=== PATIENT | female | born 1975 | race Caucasian/White ===

== ENCOUNTER 2016-12-31 16:16 | Inpatient (IN) | payer MEDICAID, OTHER ==
[~2016-12-31] VITALS: Ht 162.6 cm; Wt 67.7 kg
[2016-12-31] MEDS ORDERED: ONDANSETRON 4 MG INJ IV STA (16:48)
[2016-12-31] MEDS ORDERED: morphine 4 MG/ML VIAL IV STA (16:48)
--- NOTE | 2016-12-31 16:53 | ERD ---
ER Documentation Chief Complaint Date/Time DATE: 12/31/16 TIME: 16:51 Chief Complaint abd pain, onset 1 day, nausea, no vomiting HPI This is a 38-year-old female who presents the emergency department today complaining of abdominal pain that started yesterday morning. States that she has some dysuria. States that she has some nausea but no vomiting. She last ate 1 hour prior to arrival. states she took Tylenol last night.Denies any fevers or chills. ROS All systems reviewed and are negative except as per history of present illness. Allergies Allergies: Coded Allergies: No Known Allergy (Unverified , 12/31/16) PMhx/Soc Medical and Surgical Hx: pt denies Medical Hx History of Surgery: Yes () Anesthesia Reaction: No Hx Neurological Disorder: No Hx Respiratory Disorders: No Hx Cardiac Disorders: No Hx Psychiatric Problems: No Hx Miscellaneous Medical Probl: No Hx Alcohol Use: No Hx Substance Use: No Hx Tobacco Use: No Smoking Status: Never smoker Physical Exam Vitals Vital Signs Date Time Temp Pulse Resp B/P Pulse Ox O2 Delivery O2 Flow Rate FiO2 12/31/16 16:20 99.5 86 17 98/74 98 Physical Exam Const: NAD Head: Atraumatic Eyes: Normal Conjunctiva ENT: Normal External Ears, Nose and Mouth. Neck: Full range of motion..~ No meningismus. Resp: Clear to auscultation bilaterally Cardio: Regular rate and rhythm, no murmurs Abd: Soft, diffuse abdominal pain non distended. Normal bowel sounds Skin: No petechiae or rashes Back: No midline or flank tenderness Ext: No cyanosis, or edema Neur: Awake and alert Psych: Normal Mood and Affect Result Diagram: 12/31/16 1735 12/31/16 1735 Results 24 hrs Laboratory Tests Test 12/31/16 17:35 White Blood Count 11.510^3/ul Red Blood Count 4.8210^6/ul Hemoglobin 14.4g/dl Hematocrit 43.1% Mean Corpuscular Volume 89.4fl Mean Corpuscular Hemoglobin 29.9pg Mean Corpuscular Hemoglobin Concent 33.4g/dl Red Cell Distribution Width 14.0% Platelet Count 08082^3/UL Mean Platelet Volume 10.5fl Neutrophils % 62.8% Lymphocytes % 30.2% Monocytes % 5.9% Eosinophils % 0.6% Basophils % 0.2% Nucleated Red Blood Cells % 0.0/100WBC Neutrophils # 7.210^3/ul Lymphocytes # 3.510^3/ul Monocytes # 0.710^3/ul Eosinophils # 0.110^3/ul Basophils # 0.010^3/ul Nucleated Red Blood Cells # 0.010^3/ul Urine Color YELLOW Urine Clarity CLEAR Urine pH 9.0 Urine Specific [place] 1.008 Urine Ketones NEGATIVEmg/dL Urine Nitrite NEGATIVEmg/dL Urine Bilirubin NEGATIVEmg/dL Urine Urobilinogen NEGATIVEmg/dL Urine Leukocyte Esterase NEGATIVELeu/ul Urine Hemoglobin NEGATIVEmg/dL Urine Glucose NEGATIVEmg/dL Urine Total Protein NEGATIVEmg/dl Sodium Level 140mmol/L Potassium Level 3.5mmol/L Chloride Level 97mmol/L Carbon Dioxide Level 35mmol/L Anion Gap 12 Blood Urea Nitrogen 11mg/dl Creatinine 0.67mg/dl Glucose Level 84mg/dl Calcium Level 9.4mg/dl Total Bilirubin 0.7mg/dl Direct Bilirubin 0.00mg/dl Indirect Bilirubin 0.7mg/dl Aspartate Amino Transf (AST/SGOT) 18IU/L Alanine Aminotransferase (ALT/SGPT) 32IU/L Alkaline Phosphatase 84IU/L Total Protein 7.4g/dl Albumin 4.2g/dl Globulin 3.20g/dl Albumin/Globulin Ratio 1.31 Lipase 27U/L Current Medications Medications (Trade) Dose Ordered Sig/Yuriy Route PRN Reason Start Time Stop Time Status Last Admin Dose Admin Morphine Sulfate (morphine) 4 mg ONCE STAT IV 12/31/16 16:48 12/31/16 16:50 DC 12/31/16 17:42 Ondansetron HCl 4 mg 4 mg ONCE STAT IV 12/31/16 16:48 12/31/16 16:50 DC 12/31/16 17:43 Sodium Chloride 1,000 ml @ 1,000 mls/hr Q1H ONCE IV 12/31/16 19:00 12/31/16 19:59 Ampicillin Sodium/ Sulbactam Sodium (Unasyn 3gm/NS (Pmx)) 100 ml @ 100 mls/hr ONCE ONCE IVPB 12/31/16 19:30 12/31/16 20:29 DIAGNOSTIC IMAGING REPORT Patient: LINA CARNEY : 1975 Age: 41 Sex: F [id number] DOS: 12/31/16 1648 Ordering MD: RICCO PARKINSON PA-C Location: [facility] Room/Bed: PROCEDURE: CT Abdomen and Pelvis without contrast. CLINICAL INDICATION: Pain. TECHNIQUE: CT scan of the abdomen and pelvis was performed on a multidetector slice CT scanner. No intravenous contrast material was utilized. Sagittal and coronal reformatted images were obtained from the axial source images. Images were reviewed on a high-resolution PACS workstation. Exam CTDlvol = 10.6 mGy and DLP = 416 Gy-cm. One of the following 3 dose reduction techniques were used : Automated exposure control; adjustment of the mA and/or kV according to patient size; or use of iterative reconstruction technique. COMPARISON: None. FINDINGS: There is no obstruction or ileus. The appendix is indistinct measuring up to 13 mm. There is extensive surrounding infiltration extending fromthe right lower quadrant to the pelvis. There is small amount of free fluid.. There are multiple sub centimeter mesenteric lymph nodes. There is no evidence for diverticulitis. The liver is overall normal in size. No intrahepatic lesions are identified. The gallbladder is normal in appearance. There is no definite biliary ductal dilation. Pancreas is normal in appearance. The spleen is unremarkable. There are no adrenal masses. The aorta is normal caliber. There are multiple complex fat containing masses in the upper pole of the left kidney, largest up to 15 mm in diameter. Kidneys are otherwise normal in appearance without hydronephrosis or calculus. There is no perinephric collection. Ureters are of normal caliber and without evidence for an obstructing calculus The urinary bladder is normal in appearance. The uterus is grossly unremarkable. The ovaries are not distinctly visualized. Limited evaluation of the lung bases demonstrates bibasilar atelectasis. There are degenerative changes at the L5-S1 disc space with disk space narrowing and posterior osteophyte.. IMPRESSION: 1. Enlarged indistinct appendix extensive surrounding infiltration extending from the right lower quadrant to the pelvis.. Appearance is consistent with acute appendicitis. No free intraperitoneal gas to suggest a ruptured appendix.. Small amount of free fluid. Small reactive lymph nodes. 2. No obstructive uropathy. Multiple fat containing lesions in the upper pole of the left kidney, most commonly angiomyolipomas. Follow-up studies are recommended for confirmation. Findings reported to nurse Janeen on 12/31/2016 6:45:25 PM. RPTAT: HMVK .Fortino Razo MD, MD Date Time Electronically viewed and signed by .Fortino Razo MD, MD on 12/31/2016 18:48 .K/ CC: RICCO PARKINSON PA-C Procedures/MDM This 41-year-old female who presents to the emergency department today complaining of abdominal pain that started yesterday morning. On physical exam patient has diffuse abdominal pain and therefore did obtain a laboratory workup as well as imaging. This is the patient's first visit to the emergency department. Laboratory workup shows a mildly elevated white blood cell count. She is not anemic. Platelets are within normal limits. Electrolytes are within normal limits. Bicarb is slightly elevated. Glucose is within normal limits. Liver enzymes are within normal limits. Lipase is within normal limits UA is negative for infection Urine test is negative CT abdomen pelvis noncontrast enlarged indistinct appendix extensive surrounding infiltration extending from the right lower quadrant to the pelvis. Appearance consistent with acute appendicitis. There is no free air to suggest a ruptured appendix. There is a small amount of free fluid. There is no obstructive uropathy. Is at this time is consistent with acute appendicitis. I have explained the results of the patient and her daughter. Patient has agreed to stay in the hospital. I discussed the patient with the attending physician Dr. Randle agreed to admit the patient. Any further orders placed will be completed by Dr. Randle or the meeting physician or the surgeon. Patient was given morphine, Zofran, IV fluids here in the emergency department he continued to complain of pain was therefore given Dilaudid. She was also given IV antibiotics. Departure Diagnosis: Primary Impression: Appendicitis Appendicitis type: acute appendicitis Acute appendicitis type: unspecified acute appendicitis type Qualified Code: K35.80 - Acute appendicitis, unspecified acute appendicitis type Condition: Fair RICCO PARKINSON PA-C Dec 31, 2016 16:53
[2016-12-31 18:03] LABS: ADD UMIC NO; UR ASCORBIC ACID NEGATIVE (NEGATIVE); UR BILIRUBIN (Dip) NEGATIVE (NEGATIVE); UR BLOOD (Dip) NEGATIVE (NEGATIVE); UR CLARITY CLEAR (CLEAR); UR COLOR YELLOW (YELLOW); UR GLUCOSE (Dip) NEGATIVE (NEGATIVE); UR KETONES (Dip) NEGATIVE (NEGATIVE); UR LEUKOCYTE ESTERASE (Dip) NEGATIVE Leu/ul (NEGATIVE); UR NITRITE (Dip) NEGATIVE (NEGATIVE); UR SPECIFIC GRAVITY (Dip) 1.008 (1.003-1.030); UR TOTAL PROTEIN (Dip) NEGATIVE (NEGATIVE); UR UROBILINOGEN (Dip) NEGATIVE (NEGATIVE)
[2016-12-31 18:04] LABS: BASOPHILS % 0.2 % (0.0-2.0); EOSINOPHILS # 0.1 10^3/ul (0.0-0.5); EOSINOPHILS % 0.6 % (0.0-7.0); HEMATOCRIT 43.1 % (37.0-47.0); HEMOGLOBIN 14.4 g/dl (12.0-16.0); LYMPHOCYTES # 3.5 10^3/ul (0.8-2.9); LYMPHOCYTES % 30.2 % (15.0-51.0); MEAN CORPUSCULAR HEMOGLOBIN 29.9 pg (29.0-33.0); MEAN CORPUSCULAR HGB CONC 33.4 g/dl (32.0-37.0); MEAN CORPUSCULAR VOLUME 89.4 fl (82.0-101.0); MEAN PLATELET VOLUME 10.5 fl (7.4-10.4); MONOCYTE # 0.7 10^3/ul (0.3-0.9); MONOCYTES % 5.9 % (0.0-11.0); NEUTROPHIL # 7.2 10^3/ul (1.6-7.5); NEUTROPHILS % 62.8 % (39.0-77.0); PLATELET COUNT 198 10^3/UL (140-415); RED BLOOD COUNT 4.82 10^6/ul (4.20-5.40); WHITE BLOOD COUNT 11.5 10^3/ul (4.8-10.8)
[2016-12-31 18:22] LABS: ALBUMIN 4.2 g/dl (3.3-4.9); ALBUMIN/GLOBULIN RATIO 1.31; BILIRUBIN,INDIRECT 0.7 mg/dl (0-1.1); BILIRUBIN,TOTAL 0.7 mg/dl (0.2-1.3); CALCIUM 9.4 mg/dl (8.4-10.2); CREATININE 0.67 mg/dl (0.44-1.00); POTASSIUM 3.5 mmol/L (3.5-5.1); TOTAL PROTEIN 7.4 g/dl (6.1-8.1)
--- NOTE | 2016-12-31 18:49 | RADRPT ---
PROCEDURE: CT Abdomen and Pelvis without contrast. CLINICAL INDICATION: Pain. TECHNIQUE: CT scan of the abdomen and pelvis was performed on a multidetector slice CT scanner. No intravenous contrast material was utilized. Sagittal and coronal reformatted images were obtained fr om the axial source images. Images were reviewed on a high-resolution PACS workstation. Exam CTDlvol = 10.6 mGy and DLP = 416 Gy-cm. One of the following 3 dose reduction techniques were used: Automat ed exposure control; adjustment of the mA and/or kV according to patient size; or use of iterative r econstruction technique. COMPARISON: None. FINDINGS: There is no obstruction or ileus. The appendix is indistinct measuring up to 13 mm. There is extens brielle surrounding infiltration extending fromthe right lower quadrant to the pelvis. There is small am ount of free fluid.. There are multiple sub centimeter mesenteric lymph nodes. There is no evidence for diverticulitis. The liver is overall normal in size. No intrahepatic lesions are identified. The gallbladder is norm al in appearance. There is no definite biliary ductal dilation. Pancreas is normal in appearance. Th e spleen is unremarkable. There are no adrenal masses. The aorta is normal caliber. There are multiple complex fat containing masses in the upper pole of the left kidney, largest up to 15 mm in diameter. Kidneys are otherwise normal in appearance without hydronephrosis or calculus. T here is no perinephric collection. Ureters are of normal caliber and without evidence for an obstruc ting calculus The urinary bladder is normal in appearance. The uterus is grossly unremarkable. The ovaries are not distinctly visualized. Limited evaluation of the lung bases demonstrates bibasilar atelectasis. There are degenerative changes at the L5-S1 disc space with disk space narrowing and posterior osteo phyte.. IMPRESSION: 1. Enlarged indistinct appendix extensive surrounding infiltration extending from the right lower qu adrant to the pelvis.. Appearance is consistent with acute appendicitis. No free intraperitoneal gas to suggest a ruptured appendix.. Small amount of free fluid. Small reactive lymph nodes. 2. No obstructive uropathy. Multiple fat containing lesions in the upper pole of the left kidney, m ost commonly angiomyolipomas. Follow-up studies are recommended for confirmation. Findings reported to nurse Vernon on 12/31/2016 6:45:25 PM. RPTAT: HMVK .Fortino Razo MD, MD Date Time Electronically viewed and signed by .Fortino Razo MD, MD on 12/31/2016 18:48 .K/
[2016-12-31] MEDS ORDERED: SOD CHLORIDE 0.9% 1,000 ML IV ONE (19:00)
[2016-12-31] MEDS ORDERED: HYDROmorphONE 1 MG/ML SYG IV STA (19:05)
[2016-12-31] MEDS ORDERED: ONDANSETRON 4 MG INJ IV PRN ×2 (19:30→21:30)
[2016-12-31] MEDS ORDERED: AMPICILLIN/SULB 3 GM/NS (PMX) 100 ML IVPB ONE (19:30)
[2016-12-31] MEDS ORDERED: ACETAMINOPHEN 325 MG TAB PO PRN ×2 (19:30→21:30)
[2016-12-31 20:35] VITALS: TEMP 99.8
[2016-12-31] MEDS ORDERED: BISACODYL (EC) 5 MG TAB PO PRN (21:30)
[2016-12-31] MEDS ORDERED: NACL 0.9% 3 ML SYG IV SCH (21:30)
[2016-12-31] MEDS ORDERED: DOCUSATE SODIUM 100 MG CAP PO PRN (21:30)
[2016-12-31 21:31] VITALS: BP 111/58; RESP 20; Ht 162.6 cm; Wt 67.7 kg
[2016-12-31] MEDS: morphine 2 MG INJ IV PRN (22:18)
[2016-12-31] MEDS: SOD CHLORIDE 0.9% 1,000 ML IV SCH (22:21)
[2016-12-31] MEDS ORDERED: ACET500C5 PO (22:58)
[2017-01-01] VITALS (17 sets, daily range): BP systolic 91–116; BP diastolic 50–67; PULSE 56–76; RESP 15–25
[2017-01-01] MEDS ORDERED: PIPER-TAZO 3.375 GM IV (PMX) 100 ML IVPB SCH
[2017-01-01] MEDS ORDERED: DIPHENHYDRAMINE 50 MG INJ IV ONE (02:00)
[2017-01-01] MEDS: morphine 2 MG INJ IV PRN ×5 (02:24→21:00)
[2017-01-01 03:44] LABS: BASOPHILS % 0.3 % (0.0-2.0); EOSINOPHILS # 0.1 10^3/ul (0.0-0.5); HEMATOCRIT 37.4 % (37.0-47.0); HEMOGLOBIN 12.3 g/dl (12.0-16.0); LYMPHOCYTES # 3.2 10^3/ul (0.8-2.9); LYMPHOCYTES % 31.6 % (15.0-51.0); MEAN CORPUSCULAR HEMOGLOBIN 29.7 pg (29.0-33.0); MEAN CORPUSCULAR HGB CONC 32.9 g/dl (32.0-37.0); MEAN CORPUSCULAR VOLUME 90.3 fl (82.0-101.0); MEAN PLATELET VOLUME 10.2 fl (7.4-10.4); MONOCYTE # 0.6 10^3/ul (0.3-0.9); MONOCYTES % 6.3 % (0.0-11.0); NEUTROPHILS % 60.5 % (39.0-77.0); PLATELET COUNT 165 10^3/UL (140-415); RED BLOOD COUNT 4.14 10^6/ul (4.20-5.40); RED CELL DISTRIBUTION WIDTH 14.2 % (11.5-14.5)
[2017-01-01 04:06] LABS: INR 1.16; PROTIME 14.9 Sec (12.2-14.2); PT RATIO 1.2
[2017-01-01 04:07] LABS: PARTIAL THROMBOPLASTIN TIME 33.5 Sec (25.0-35.0)
[2017-01-01 04:27] LABS: ALBUMIN 3.3 g/dl (3.3-4.9); ALBUMIN/GLOBULIN RATIO 1.22; BILIRUBIN,INDIRECT 0.4 mg/dl (0-1.1); BILIRUBIN,TOTAL 0.4 mg/dl (0.2-1.3); CALCIUM 7.9 mg/dl (8.4-10.2); CREATININE 0.67 mg/dl (0.44-1.00); MAGNESIUM 1.8 mg/dl (1.7-2.5); POTASSIUM 3.5 mmol/L (3.5-5.1)
[2017-01-01] MEDS ORDERED: ROCURONIUM 50 MG INJ ONE (04:50)
[2017-01-01] MEDS ORDERED: ROPIVACAINE 0.2% 20 ML VIAL ONE (04:50)
[2017-01-01] MEDS ORDERED: MIDAZOLAM 1 MG/ML 2 ML INJ ONE (04:50)
[2017-01-01] MEDS ORDERED: PROPOFOL 20 ML ONE (04:50)
[2017-01-01] MEDS ORDERED: FENTAnyl 50 MCG/ML VIAL ONE (04:50)
[2017-01-01] MEDS ORDERED: BUPIVACAINE 0.5%/EPI (SDV) 30 ML INJ ONE (04:51)
--- NOTE | 2017-01-01 05:14 | CONS ---
Date/Time of Note Date/Time of Note DATE: 01/01/17 TIME: 05:09 Assessment/Plan Assessment/Plan Additional Assessment/Plan Acute appendicitis Plan: Laparoscopic appendectomy, possible open. I have discussed the procedure , outcomes, indications, alternatives and risks with the patient, who has an excellent understanding of the nature of her condition and agrees to the proposed plan of therapy as outlined. Consultation Date/Type/Reason Admit Date/Time Dec 31, 2016 at 19:24 Date of Consultation: Jan 01, 2017 Reason for Consultation Acute appendicitis Hx of Present Illness The patient is an otherwise healthy 41-year-old female who presents with a 1 day history of abdominal pain which localized to the right lower quadrant. In the emergency room she was noted to have a tender right lower quadrant, and elevated white blood cell count, and a CT compatible with acute appendicitis. She has had no fevers or chills. HEENT: Unremarkable Pulmonary: No history of shortness of breath, asthma, or pneumonia Cardiac: No history of chest pain, DE or arrhythmia Abdomen: As in the HPI. History of section Extremities: Unremarkable Neurologic: Unremarkable Constitutional: no complaints Eyes: no complaints ENT: no complaints Respiratory: no complaints Gastrointestinal: pain (Right lower quadrant) Genitourinary: no complaints Musculoskeletal: no complaints Skin: no complaints Neurologic: no complaints Endocrine: no complaints Lymphatic: no complaints Psychological: no complaints Immunologic: no complaints Past Medical History Medical History: no pertinent history Past Surgical History Past Surgical Hx: other ( section) Family History Significant Family History: no pertinent family hx Social History Alcohol Use: none Smoking Status: Never smoker Drug Use: none Exam/Review of Systems Vital Signs Vitals Vital Signs Date Time Temp Pulse Resp B/P Pulse Ox O2 Delivery O2 Flow Rate FiO2 01/01/17 02:34 98.2 64 16 91/53 97 12/31/16 20:35 Room Air Results Result Diagram: 01/01/17 0336 01/01/17 0336 Results 24 hrs Laboratory Tests Test 12/31/16 17:35 01/01/17 03:36 White Blood Count 11.5 H 10.0 Red Blood Count 4.82 4.14 L Hemoglobin 14.4 12.3 Hematocrit 43.1 37.4 Mean Corpuscular Volume 89.4 90.3 Mean Corpuscular Hemoglobin 29.9 29.7 Mean Corpuscular Hemoglobin Concent 33.4 32.9 Red Cell Distribution Width 14.0 14.2 Platelet Count 198 165 Mean Platelet Volume 10.5 H 10.2 Neutrophils % 62.8 60.5 Lymphocytes % 30.2 31.6 Monocytes % 5.9 6.3 Eosinophils % 0.6 1.0 Basophils % 0.2 0.3 Nucleated Red Blood Cells % 0.0 0.0 Neutrophils # 7.2 6.0 Lymphocytes # 3.5 H 3.2 H Monocytes # 0.7 0.6 Eosinophils # 0.1 0.1 Basophils # 0.0 0.0 Nucleated Red Blood Cells # 0.0 0.0 Urine Color YELLOW Urine Clarity CLEAR Urine pH 9.0 Urine Specific [place] 1.008 Urine Ketones NEGATIVE Urine Nitrite NEGATIVE Urine Bilirubin NEGATIVE Urine Urobilinogen NEGATIVE Urine Leukocyte Esterase NEGATIVE Urine Hemoglobin NEGATIVE Urine Glucose NEGATIVE Urine Total Protein NEGATIVE Sodium Level 140 141 Potassium Level 3.5 3.5 Chloride Level 97 107 # Carbon Dioxide Level 35 H 27 Anion Gap 12 11 Blood Urea Nitrogen 11 10 Creatinine 0.67 0.67 Glucose Level 84 93 Calcium Level 9.4 7.9 L Total Bilirubin 0.7 0.4 Direct Bilirubin 0.00 0.00 Indirect Bilirubin 0.7 0.4 Aspartate Amino Transf (AST/SGOT) 18 16 Alanine Aminotransferase (ALT/SGPT) 32 31 Alkaline Phosphatase 84 67 Total Protein 7.4 6.0 #L Albumin 4.2 3.3 Globulin 3.20 2.70 Albumin/Globulin Ratio 1.31 1.22 Lipase 27 Prothrombin Time 14.9 H Prothrombin Time Ratio 1.2 INR International Normalized Ratio 1.16 Activated Partial Thromboplast Time 33.5 Hemoglobin A1c 5.2 Magnesium Level 1.8 Triglycerides Level 124 Cholesterol Level 133 LDL Cholesterol, Calculated 64 HDL Cholesterol 44 Cholesterol/HDL Ratio 3.0 Thyroid Stimulating Hormone (TSH) Pending Medications Medications Current Medications Sodium Chloride (NS) 1,000 ml @ 80 mls/hr [id number] IV Last administered on t 22:21; Admin Dose 80 MLS/HR; Start 12/31/16 at 21:12 Ondansetron HCl (Zofran Inj) 4 mg Q6H PRN IV NAUSEA AND/OR VOMITING; Start at 21:30 Acetaminophen (Tylenol Tab) 650 mg Q6H PRN PO PAIN LEVEL 1-3 OR FEVER; Start 12/31/16 at 21:30 Morphine Sulfate (morphine) 2 mg Q4H PRN IV SEVERE PAIN LEVEL 7-10 Last administered on 01/01/17t 02:24; Admin Dose 2 MG; Start 12/31/16 at 21:30 Docusate Sodium (Colace) 100 mg Q12H PRN PO CONSTIPATION; Start 12/31/16 at 21 :30 Bisacodyl (Dulcolax) 5 mg DAILY PRN PO CONSTIPATION; Start 12/31/16 at 21:30 Pantoprazole 40 mg 40 mg DAILY@06 IV ; Start 01/01/17 at 06:00 Ampicillin Sodium/ Sulbactam Sodium (Unasyn 3gm/NS (Pmx)) 100 ml @ 100 mls/hr Q6 IVPB ; Start 01/01/17 at 06:00 EDITH DAVISON MD Jan 01, 2017 05:13
[2017-01-01] MEDS ORDERED: DIPHENHYDRAMINE 50 MG INJ ONE (05:22)
[2017-01-01] MEDS ORDERED: ACETAMINOPHEN 1000MG/100ML IV 100 ML ONE (05:39)
[2017-01-01] MEDS ORDERED: ONDANSETRON 4 MG INJ ONE (05:39)
[2017-01-01] MEDS ORDERED: METOCLOPRAMIDE 10 MG INJ ONE (05:39)
[2017-01-01] MEDS ORDERED: SUGAMMADEX SODIUM 200 MG/2 ML VIAL IV ONE (05:40)
[2017-01-01] MEDS ORDERED: KETOROLAC 30 MG INJ ONE (05:40)
[2017-01-01] MEDS ORDERED: DEXAMETHASONE 4 MG/ML 1 ML INJ ONE (05:40)
[2017-01-01] MEDS ORDERED: DIPHENHYDRAMINE 50 MG INJ IV PRN (06:00)
[2017-01-01] MEDS ORDERED: hydrALAzine 20 MG INJ IV PRN (06:00)
[2017-01-01] MEDS ORDERED: ONDANSETRON 4 MG INJ IV PRN ×2 (06:00→06:30)
[2017-01-01] MEDS ORDERED: PANTOPRAZOLE 40 MG INJ IV SCH (06:00)
[2017-01-01] MEDS ORDERED: EPHEDrine SULFATE 50 MG/5 ML SYG IV PRN (06:00)
[2017-01-01] MEDS ORDERED: morphine (1 MG/ML) 10ML SYRINGE IV PRN ×3 (06:00)
[2017-01-01] MEDS ORDERED: FENTAnyl 50 MCG/ML VIAL IV PRN ×3 (06:00)
[2017-01-01] MEDS ORDERED: METOCLOPRAMIDE 10 MG INJ IV PRN (06:00)
[2017-01-01] MEDS ORDERED: MEPERIDINE 25 MG INJ IV PRN (06:00)
[2017-01-01] MEDS: AMPICILLIN/SULB 3 GM/NS (PMX) 100 ML IVPB SCH ×4 (06:00→23:32)
[2017-01-01] MEDS ORDERED: LABETALOL HCL 20MG INJ IV PRN (06:00)
[2017-01-01] MEDS ORDERED: HYDROmorphONE (0.2 MG/ML) 10ML SYG IV PRN ×3 (06:00)
--- NOTE | 2017-01-01 06:09 | OPR ---
Date/Time of Note Date/Time of Note DATE: 01/01/17 TIME: 06:03 Operative Report Procedure Date: Jan 01, 2017 Preoperative Diagnosis Acute appendicitis Postoperative Diagnosis Acute appendicitis with localized peritonitis Operation/Procedure Performed Laparoscopic appendectomy Surgeon Edith Davison MD Home Economics Teacher None Anesthesia Type: general Anesthesiologist: HOLLY PALOMINO MD Estimated Blood Loss: other (20 cc) Transfusion none Specimen Appendix Grafts/Implants none Tubes/Drains None Complications none Pt Condition Post Procedure: stable Disposition: PACU Indications Localized peritonitis Procedure Description After satisfactory general endotracheal anesthesia was achieved, the abdomen was prepped and draped in usual fashion. The abdomen was insufflated with carbon dioxide through an umbilical Veress needle to 15 mmHg pressure. The Veress needle was removed and the umbilical incision extended to 5 mm through which a 5 mm trocar was placed. A 5 mm 0 lens was placed. Laparoscopy showed an acutely inflamed intraperitoneal appendix with localized peritonitis. Under direct visualization a 5 mm suprapubic trocar was placed as well as a 12 mm trocar midway between the umbilicus and the xiphoid. The camera was put into the suprapubic port. A window was made in the mesoappendix through which a vascular linear cutter was placed across the base of the cecum, closed and fired disconnecting the appendix from the cecum. 3 more firings of the vascular stapler across the mesoappendix fully freed the appendix. Manipulation of the appendix led to a fracture of the central portion of the appendix however the entire appendix was placed into an Endo Catch removed via the 12 mm port site. Hemostasis of the staple lines was total and irrigant returned clear. The fascial defect at the 12 mm port site was closed with a single suture of #1 Vicryl placed with the assistance of a Phillip Karen device. The abdomen was then desufflated and the trochars were removed. The skin punctures were infiltrated with 30 cc of 0.5% Marcaine with epinephrine and closed with seun. Sponge and needle counts were reported as correct 2. EDITH DAVISON MD Jan 01, 2017 06:09
[2017-01-01] MEDS ORDERED: OXYCODONE/ACETAMINOPHEN (5/325) TAB PO PRN (06:30)
[2017-01-01] MEDS ORDERED: morphine 2 MG INJ IV PRN (06:30)
--- NOTE | 2017-01-01 06:41 | HP ---
Date/Time of Note Date/Time of Note DATE: 01/01/17 TIME: 06:36 Assessment/Plan VTE Prophylaxis VTE Prophylaxis Intervention: SCD's Lines/Catheters IV [facility] Peripheral IV Assessment/Plan Chief Complaint/Hosp Course This is a 38-year-old female being admitted to the [facility] floor for: #1 acute appendicitis: Confirmed with CAT scan. Keep patient n.p.o., ampicillin/sulbactam IV, IV fluid hydration with normal saline. Pain control with IV narcotics. Zofran as needed for nausea. Surgery on-call consulted via the ED. #2 DVT GI prophylaxis: SCDs, acid cuco Further treatment strategy will be implemented as per the clinical course Problems: HPI/ROS Admit Date/Time Admit Date/Time Dec 31, 2016 at 19:24, patient seen at 01:00 on January 01 Hx of Present Illness Chief complaint: Right lower quadrant no pain This is a 38-year-old female who presents the emergency department today complaining of abdominal pain that started yesterday morning. States that she has some dysuria. States that she has some nausea but no vomiting. She last ate 1 hour prior to arrival. states she took Tylenol last night.Denies any fevers or chills. Allergies: None Medications: None ROS Const: As per HPI Eyes : No pain discharge or redness or change in visual acuity ENT: No pain, sore throat, congestion, congestion, dysphagia or discharge Respiratory: No shortness of breath, cough, sputum, wheezing, or pleuritic pain Cardiovascular: No chest pain, palpitation, PND, or edema GI : As per HPI Genitourinary: No dysuria, hematuria, flank pain , discharge or CVA tenderness Musculoskeletal: No joint pain, back pain, neck pain, restricted range of motion in neck or joints Skin: No rash, bruising or hives Neuro: No headache, dizziness, syncope, seizure, focal weakness Endocrine: No polyuria, polydipsia, temperature intolerance Psych: No hallucination, depression, anxiety or suicidal ideation Eyes: no complaints ENT: no complaints Respiratory: no complaints Gastrointestinal: pain (Right lower quadrant) Genitourinary: no complaints Musculoskeletal: no complaints Skin: no complaints Neurologic: no complaints Lymphatic: no complaints Psychological: no complaints Immunologic: no complaints PMH/Family/Social Past Medical History Medical History: no pertinent history Past Surgical History 1 Past Surgical Hx: other ( section) Family History Significant Family History: no pertinent family hx Social History Alcohol Use: none Smoking Status: Never smoker Drug Use: none Exam/Review of Systems Vital Signs Vitals Vital Signs Date Time Temp Pulse Resp B/P Pulse Ox O2 Delivery O2 Flow Rate FiO2 01/01/17 06:15 98.0 01/01/17 04:45 60 18 91/52 96 Room Air Intake and Output 12/31/16 12/31/16 01/01/17 15:00 23:00 07:00 Intake Total 1600 ml Output Total 405 ml Balance 1195 ml Exam Exam General: Patient lying in bed in mild distress from pain HEENT: Atraumatic, normocephalic. The pupils are equal, round and reactive. Extraocular motor are intact Neck: Supple with full range of motion. No rigidity or meningismus Chest: Nontender Lungs: Clear to auscultation bilaterally no crackles rales or wheezing Heart: Normal S1-S2, Regular rhythm and rate. No murmur, S3, or S4 Abdomen: Right lower quadrant tenderness to palpation, nondistended, normal bowel sounds Extremities: Normal to inspection, no edema no cyanosis Neurologic: Normal mental status, speech normal, cranial nerves II through XII are intact, motor and sensory are intact, no focal weakness Additional Comments PROCEDURE: CT Abdomen and Pelvis without contrast. CLINICAL INDICATION: Pain. TECHNIQUE: CT scan of the abdomen and pelvis was performed on a multidetector slice CT scanner. No intravenous contrast material was utilized. Sagittal and coronal reformatted images were obtained from the axial source images. Images were reviewed on a high-resolution PACS workstation. Exam CTDlvol = 10.6 mGy and DLP = 416 Gy-cm. One of the following 3 dose reduction techniques were used : Automated exposure control; adjustment of the mA and/or kV according to patient size; or use of iterative reconstruction technique. COMPARISON: None. FINDINGS: There is no obstruction or ileus. The appendix is indistinct measuring up to 13 mm. There is extensive surrounding infiltration extending fromthe right lower quadrant to the pelvis. There is small amount of free fluid.. There are multiple sub centimeter mesenteric lymph nodes. There is no evidence for diverticulitis. The liver is overall normal in size. No intrahepatic lesions are identified. The gallbladder is normal in appearance. There is no definite biliary ductal dilation. Pancreas is normal in appearance. The spleen is unremarkable. There are no adrenal masses. The aorta is normal caliber. There are multiple complex fat containing masses in the upper pole of the left kidney, largest up to 15 mm in diameter. Kidneys are otherwise normal in appearance without hydronephrosis or calculus. There is no perinephric collection. Ureters are of normal caliber and without evidence for an obstructing calculus The urinary bladder is normal in appearance. The uterus is grossly unremarkable. The ovaries are not distinctly visualized. Limited evaluation of the lung bases demonstrates bibasilar atelectasis. There are degenerative changes at the L5-S1 disc space with disk space narrowing and posterior osteophyte.. IMPRESSION: 1. Enlarged indistinct appendix extensive surrounding infiltration extending from the right lower quadrant to the pelvis.. Appearance is consistent with acute appendicitis. No free intraperitoneal gas to suggest a ruptured appendix.. Small amount of free fluid. Small reactive lymph nodes. 2. No obstructive uropathy. Multiple fat containing lesions in the upper pole of the left kidney, most commonly angiomyolipomas. Follow-up studies are recommended for confirmation. Findings reported to nurse Vernon on 12/31/2016 6:45:25 PM. RPTAT: HMVK .Fortino Razo MD, MD Date Time Electronically viewed and signed by .Fortino Razo MD, on 12/31/2016 18:48 .K/ CC: RICCO PARKINSON PA-C Labs Result Diagram: 01/01/17 0336 01/01/17 0336 Medications Medications Current Medications Sodium Chloride (NS) 1,000 ml @ 80 mls/hr [id number] IV Last administered on t 22:21; Admin Dose 80 MLS/HR; Start 12/31/16 at 21:12 Ondansetron HCl (Zofran Inj) 4 mg Q6H PRN IV NAUSEA AND/OR VOMITING; Start at 21:30 Acetaminophen (Tylenol Tab) 650 mg Q6H PRN PO PAIN LEVEL 1-3 OR FEVER; Start 12/31/16 at 21:30 Morphine Sulfate (morphine) 2 mg Q4H PRN IV SEVERE PAIN LEVEL 7-10 Last administered on 01/01/17t 02:24; Admin Dose 2 MG; Start 12/31/16 at 21:30 Docusate Sodium (Colace) 100 mg Q12H PRN PO CONSTIPATION; Start 12/31/16 at 21 :30 Bisacodyl (Dulcolax) 5 mg DAILY PRN PO CONSTIPATION; Start 12/31/16 at 21:30 Pantoprazole 40 mg 40 mg DAILY@06 IV ; Start 01/01/17 at 06:00 Ampicillin Sodium/ Sulbactam Sodium (Unasyn 3gm/NS (Pmx)) 100 ml @ 100 mls/hr Q6 IVPB ; Start 01/01/17 at 06:00 Oxycodone/ Acetaminophen (Percocet (5/ 325)) 1 tab Q4H PRN PO MILD PAIN (1-3); Start 01/01/17 at 06:30 Oxycodone/ Acetaminophen (Percocet (5/ 325)) 2 tab Q4H PRN PO MODERATE PAIN (4- 6); Start 01/01/17 at 06:30 Morphine Sulfate (morphine) 2 mg ONCE PRN IV SEVERE PAIN LEVEL 7-10; Start at 06:30 Ondansetron HCl (Zofran Inj) 4 mg Q6H PRN IV NAUSEA; Start 01/01/17 at 06:30 HAYDEE POWER Jan 01, 2017 06:41
[2017-01-01 07:07] LABS: THYROID STIMULATING HORMONE 0.739 MIU/L (0.465-4.680)
[2017-01-01] MEDS: SOD CHLORIDE 0.9% 1,000 ML IV SCH ×3 (08:08→23:29)
[2017-01-01] MEDS: FAMOTIDINE 20 MG INJ IV SCH ×2 (09:37→21:01)
[2017-01-01] MEDS: OXYCODONE/ACETAMINOPHEN (5/325) TAB PO PRN ×3 (13:57→23:27)
[2017-01-02] MEDS: morphine 2 MG INJ IV PRN ×3 (01:01→10:17)
[2017-01-02 02:28] VITALS: BP 126/62; RESP 20
[2017-01-02] MEDS: AMPICILLIN/SULB 3 GM/NS (PMX) 100 ML IVPB SCH ×4 (05:17→23:48)
[2017-01-02 05:48] LABS: BASOPHILS % 0.2 % (0.0-2.0); EOSINOPHILS % 0.4 % (0.0-7.0); HEMATOCRIT 37.9 % (37.0-47.0); HEMOGLOBIN 12.6 g/dl (12.0-16.0); MEAN CORPUSCULAR HEMOGLOBIN 29.9 pg (29.0-33.0); MEAN CORPUSCULAR HGB CONC 33.2 g/dl (32.0-37.0); MONOCYTE # 0.6 10^3/ul (0.3-0.9); MONOCYTES % 5.6 % (0.0-11.0); NEUTROPHIL # 6.7 10^3/ul (1.6-7.5); NEUTROPHILS % 64.5 % (39.0-77.0); PLATELET COUNT 165 10^3/UL (140-415); RED BLOOD COUNT 4.21 10^6/ul (4.20-5.40); RED CELL DISTRIBUTION WIDTH 14.1 % (11.5-14.5); WHITE BLOOD COUNT 10.4 10^3/ul (4.8-10.8)
[2017-01-02 06:11] LABS: MAGNESIUM 1.8 mg/dl (1.7-2.5); PHOSPHORUS 3.7 mg/dl (2.5-4.9)
[2017-01-02 06:15] LABS: CALCIUM 8.7 mg/dl (8.4-10.2); CREATININE 0.65 mg/dl (0.44-1.00); POTASSIUM 3.6 mmol/L (3.5-5.1)
[2017-01-02 08:10] VITALS: BP 128/75; RESP 18
[2017-01-02] MEDS: OXYCODONE/ACETAMINOPHEN (5/325) TAB PO PRN ×4 (08:53→22:22)
[2017-01-02] MEDS: FAMOTIDINE 20 MG INJ IV SCH ×2 (08:53→21:26)
[2017-01-02] MEDS: SOD CHLORIDE 0.9% 1,000 ML IV SCH ×3 (10:42→23:12)
[2017-01-02 13:13] VITALS: BP 125/70; RESP 18
--- NOTE | 2017-01-02 14:47 | PN ---
Date/Time of Note Date/Time of Note DATE: 01/02/17 TIME: 14:44 Assessment/Plan VTE Prophylaxis VTE Prophylaxis Intervention: ambulation, SCD's Lines/Catheters IV Catheter Type (from Nrs): Peripheral IV Assessment/Plan Chief Complaint/Hosp Course 1. Acute appendicitis with localized peritonitis. Status post laparoscopic appendectomy on 01/01/2017. Continue pain control. Continue antibiotics. Encourage frequent ambulation and frequent use of incentive spirometry. The patient has been in the bed and not getting up and walking. 2. Fluids, electrolytes, and nutrition. Regular diet. 3. DVT prophylaxis. Ambulation. 4. Plan. The patient was instructed on the importance of frequent ambulation and frequent use of incentive spirometry to ensure faster recovery. The instructions were given with the help of a certified knot borer. Case discussed with Dr. Kaba. Problems: Subjective 24 Hr Interval Summary Free Text/Dictation Patient has been more or less on bedrest with moving up only to bedside commode. Started passing gas. No bowel movements yet. Exam/Review of Systems Vital Signs Vitals Vital Signs Date Time Temp Pulse Resp B/P Pulse Ox O2 Delivery O2 Flow Rate FiO2 01/02/17 13:13 98.0 69 18 125/70 96 01/01/17 06:57 Nasal Cannula 2.0 Intake and Output 01/01/17 01/01/17 01/02/17 15:00 23:00 07:00 Intake Total 200 ml 2170 ml 1820 ml Output Total 1600 ml 2300 ml Balance 200 ml 570 ml -480 ml Exam General: Adequately build 41 year-old male lying in bed in no apparent distress. HEENT: Normocephalic, atraumatic. Eyes: Anicteric sclerae, conjunctivae clear. ENT: Nasal septum midline, oral mucosa moist. Neck supple, no JVD noticed. Respiratory: Bilaterally clear breath sounds. No use of accessory muscles of respiration. No adventitious breath sounds. Cardiovascular: S1, S2 heard. No murmurs or gallops. Abdomen: Soft. Tapes of her laparoscopic incision sites. Anju-incisional tenderness. Genitourinary: Deferred. Extremities: No cyanosis, no clubbing, no edema. Peripheral pulses palpable. Neurologic: Cranial nerves II through XII grossly intact. The patient is awake, alert, and oriented. Skin: Normal skin turgor. No skin rashes. Results Result Diagram: 01/02/17 0516 01/02/17 0516 Results 24 hrs Laboratory Tests Test 01/02/17 05:16 White Blood Count 10.4 Red Blood Count 4.21 Hemoglobin 12.6 Hematocrit 37.9 Mean Corpuscular Volume 90.0 Mean Corpuscular Hemoglobin 29.9 Mean Corpuscular Hemoglobin Concent 33.2 Red Cell Distribution Width 14.1 Platelet Count 165 Mean Platelet Volume 11.0 H Neutrophils % 64.5 Lymphocytes % 29.0 Monocytes % 5.6 Eosinophils % 0.4 Basophils % 0.2 Nucleated Red Blood Cells % 0.0 Neutrophils # 6.7 Lymphocytes # 3.0 H Monocytes # 0.6 Eosinophils # 0.0 Basophils # 0.0 Nucleated Red Blood Cells # 0.0 Sodium Level 142 Potassium Level 3.6 Chloride Level 107 Carbon Dioxide Level 29 Anion Gap 10 Blood Urea Nitrogen 10 Creatinine 0.65 Glucose Level 89 Calcium Level 8.7 Phosphorus Level 3.7 Magnesium Level 1.8 Medications Medications Current Medications Sodium Chloride (NS) 1,000 ml @ 80 mls/hr [id number] IV Last administered on 23:29; Admin Dose 80 MLS/HR; Start 12/31/16 at 21:12 Ondansetron HCl (Zofran Inj) 4 mg Q6H PRN IV NAUSEA AND/OR VOMITING; Start at 21:30 Acetaminophen (Tylenol Tab) 650 mg Q6H PRN PO PAIN LEVEL 1-3 OR FEVER; Start 12/31/16 at 21:30 Morphine Sulfate (morphine) 2 mg Q4H PRN IV SEVERE PAIN LEVEL 7-10 Last administered on 01/02/17 10:17; Admin Dose 2 MG; Start 12/31/16 at 21:30 Docusate Sodium (Colace) 100 mg Q12H PRN PO CONSTIPATION; Start 12/31/16 at 21 :30 Bisacodyl 5 mg 5 mg DAILY PRN PO CONSTIPATION; Start 12/31/16 at 21:30 Ampicillin Sodium/ Sulbactam Sodium (Unasyn 3gm/NS (Pmx)) 100 ml @ 100 mls/hr Q6 IVPB Last administered on 01/02/17 12:44; Admin Dose 100 MLS/HR; Start at 06:00 Oxycodone/ Acetaminophen (Percocet (5/ 325)) 1 tab Q4H PRN PO MILD PAIN (1-3); Start 01/01/17 at 06:30 Oxycodone/ Acetaminophen (Percocet (5/ 325)) 2 tab Q4H PRN PO MODERATE PAIN (4- 6) Last administered on 01/02/17 12:45; Admin Dose 2 TAB; Start 01/01/17 at 06:30 Morphine Sulfate (morphine) 2 mg ONCE PRN IV SEVERE PAIN LEVEL 7-10; Start at 06:30 Ondansetron HCl (Zofran Inj) 4 mg Q6H PRN IV NAUSEA; Start 01/01/17 at 06:30 Famotidine (Pepcid Iv) 20 mg Q12 IV Last administered on 01/02/17 08:53; Admin Dose 20 MG; Start 01/01/17 at 09:00 NELI CARBAJAL NP Jan 02, 2017 14:47
[2017-01-02 17:31] VITALS: BP 128/78; PULSE 69; RESP 13
[2017-01-02] MEDS: POLYETHYLENE GLYCOL 17 GM PACKET PO SCH ×2 (18:06→22:13)
[2017-01-02 20:00] VITALS: BP 119/65; RESP 18
[2017-01-03 02:00] VITALS: BP 119/74; PULSE 53; RESP 18
[2017-01-03] MEDS: OXYCODONE/ACETAMINOPHEN (5/325) TAB PO PRN (05:04)
[2017-01-03] MEDS: AMPICILLIN/SULB 3 GM/NS (PMX) 100 ML IVPB SCH ×3 (05:56→18:00)
[2017-01-03] MEDS ORDERED: PANTOPRAZOLE (EC) 40 MG TAB PO SCH (06:00)
[2017-01-03 06:05] LABS: BASOPHILS % 0.3 % (0.0-2.0); EOSINOPHILS # 0.1 10^3/ul (0.0-0.5); EOSINOPHILS % 1.2 % (0.0-7.0); HEMATOCRIT 41.3 % (37.0-47.0); HEMOGLOBIN 13.5 g/dl (12.0-16.0); LYMPHOCYTES # 2.7 10^3/ul (0.8-2.9); MEAN CORPUSCULAR HEMOGLOBIN 29.4 pg (29.0-33.0); MEAN CORPUSCULAR HGB CONC 32.7 g/dl (32.0-37.0); MEAN PLATELET VOLUME 10.8 fl (7.4-10.4); MONOCYTE # 0.5 10^3/ul (0.3-0.9); MONOCYTES % 5.9 % (0.0-11.0); NEUTROPHIL # 5.6 10^3/ul (1.6-7.5); NEUTROPHILS % 62.5 % (39.0-77.0); PLATELET COUNT 216 10^3/UL (140-415); RED BLOOD COUNT 4.59 10^6/ul (4.20-5.40); RED CELL DISTRIBUTION WIDTH 13.9 % (11.5-14.5)
[2017-01-03 06:34] LABS: CALCIUM 8.9 mg/dl (8.4-10.2); CREATININE 0.59 mg/dl (0.44-1.00); POTASSIUM 3.7 mmol/L (3.5-5.1)
[2017-01-03 06:58] LABS: MAGNESIUM 1.8 mg/dl (1.7-2.5); PHOSPHORUS 4.3 mg/dl (2.5-4.9)
[2017-01-03 07:56] VITALS: BP 122/66; RESP 20
[2017-01-03] MEDS: POLYETHYLENE GLYCOL 17 GM PACKET PO SCH (08:30)
--- NOTE | 2017-01-03 11:35 | PDOCDIS ---
Discharge Instructions DIAGNOSIS Discharge Diagnosis Acute appendicitis. CONDITION Patient Condition: Stable HOME CARE INSTRUCTIONS: Diet Instructions: RegularSpecial Diet: regular diet FOLLOW UP/APPOINTMENTS Follow-up Plan Venkata Buck MD Specialty General Surgery Office Address [address] [address] Office OTHER ORDERS: Other Orders: 1. Dieta regular segn lo tolerado. 2. Mantenga las incisiones limpias y secas. Puede ducharse. Evite los baos de baera y nade reema 2 semanas. Use un jabn suave y seque las incisiones. 3. [place] los medicamentos necesarios para el dolor. 4. Llame al cirujano o vaya al ER ms cat si tiene dolor abdominal intenso a pesar de los medicamentos para el dolor. 5. Llame al cirujano o vaya al ER ms cat si nota cualquier sangrado o secreciones que salen de los sitios de la incisin. Tambin llame al cirujano si nota yamila en las heces, si tiene fiebre persistente o cualquier otro signo o sntoma inusual. 6. Seguimiento con el dee dee Buck en 7 mattson para el chequeo de incisin. 7. Evite levantar objetos pesados [ms de 25 libras] reema 8 semanas 1. Regular diet as tolerated. 2. Keep incisions clean and dry. May shower. Avoid tub baths and swimming for 2 weeks. Use mild soap and pat dry the incisions. 3. Take medications as needed for pain. 4. Call the surgeon or go to the nearest ER if you have severe abdominal pain despite pain medications. 5. Call the surgeon or go to the nearest ER if you notice any bleeding or secretions coming out of the incision sites. Also call the surgeon if you notice any blood in stool, if you have persistent fevers, or any other unusual signs or symptoms. 6. Follow-up with the surgeon Dr. Buck in 7 days for incision check. 7. Avoid heavy lifting [more than 25 pounds] for 8 weeks. NELI CARBAJAL NP Jan 03, 2017 11:35
[2017-01-03] MEDS ORDERED: HYDR-906 PO ×2 (11:37→11:39)
[2017-01-03] MEDS ORDERED: DOCU-144 PO (11:37)
[2017-01-03] MEDS ORDERED: CEPH500C PO (11:39)
[2017-01-03] MEDS: SOD CHLORIDE 0.9% 1,000 ML IV SCH ×2 (11:42→14:51)
--- NOTE | 2017-01-03 11:42 | DS ---
Date/Time of Note Date/Time of Note DATE: 01/03/17 TIME: 11:41 Discharge Summary Admission/Discharge Info Admit Date/Time Dec 31, 2016 at 19:24 Discharge Date/Time Discharge Diagnosis 1. Acute appendicitis with localized peritonitis. Status post laparoscopic appendectomy. Patient Condition: Stable Consults 1. Venkata Buck MD, General Surgery. Procedures Preoperative Diagnosis Acute appendicitis Postoperative Diagnosis Acute appendicitis with localized peritonitis Operation/Procedure Performed Laparoscopic appendectomy CT Scan of the Abdomen and Pelvis IMPRESSION: 1. Enlarged indistinct appendix extensive surrounding infiltration extending from the right lower quadrant to the pelvis.. Appearance is consistent with acute appendicitis. No free intraperitoneal gas to suggest a ruptured appendix.. Small amount of free fluid. Small reactive lymph nodes. 2. No obstructive uropathy. Multiple fat containing lesions in the upper pole of the left kidney, most commonly angiomyolipomas. Follow-up studies are recommended for confirmation. Hx of Present Illness Chief complaint: Right lower quadrant abdominal pain This is a 41-year-old female who presented to the emergency department complaining of abdominal pain. Stated that she has some dysuria. Stated that she has some nausea but no vomiting. Stated she took Tylenol for pain relief. Denied any fevers or chills. Allergies: None Medications: None Hospital Course The patient was admitted to inpatient setting. A general surgery consult was obtained. The patient was kept n.p.o. She was started on empiric antibiotics. The patient was brought in with IV fluids. The patient was taken to the OR on 01/01/2017 and the patient underwent a laparoscopic appendectomy. Operative findings also showed localized peritonitis. Postoperatively, the patient was transferred to medical surgical floor. The patient was started on a diet and the patient's diet was advanced as tolerated to a regular consistency diet without any significant gastrointestinal symptoms. The patient was encouraged on early ambulation and frequent use of incentive spirometry. However, the patient was very hesitant to ambulate on the first postoperative day, complaining of severe pain. Of note, the patient was using a bedside commode on postoperative day 1. Therefore, the patient was reinforced on the importance of getting up and walking around along with frequent use of incentive spirometry to facilitate faster recovery. The patient was maintained on IV antibiotics postoperatively because of the findings of localized peritonitis. The patient is stable today to be discharged home. The patient's abdominal pain is well controlled with analgesics. The patient has started passing gas. Discharge Instructions 1. Regular diet as tolerated. 2. Keep incisions clean and dry. May shower. Avoid tub baths and swimming for 2 weeks. Use mild soap and pat dry the incisions. 3. Take medications as needed for pain. 4. Call the surgeon or go to the nearest ER if you have severe abdominal pain despite pain medications. 5. Call the surgeon or go to the nearest ER if you notice any bleeding or secretions coming out of the incision sites. Also call the surgeon if you notice any blood in stool, if you have persistent fevers, or any other unusual signs or symptoms. 6. Follow-up with the surgeon Dr. Buck in 7 days for incision check. 7. Avoid heavy lifting [more than 25 pounds] for 8 weeks. The discharge instructions were given with the help of a underwriting analyst. The patient verbalized understanding of her discharge instructions. At this time I would like to thank Dr. Buck for seeing the patient, doing the necessary procedures, and providing clinical recommendations. Case discussed with Dr. Kaba. Home Meds Active Scripts Cephalexin* (Cephalexin*) 500 Mg Capsule, 500 MG PO Q6, #28 CAP Prov:NELI CARBAJAL NP 01/03/17 Hydrocodone/Acetaminophen ([place] 5-325 Tablet) 1 Each Tablet, 1 EACH PO Q4H for PAIN, #40 TAB Prov:NELI CARBAJAL NP 01/03/17 Docusate Sodium* (Colace*) 100 Mg Capsule, 100 MG PO BID for 10 Days, #20 CAP Prov:NELI CARBAJAL NP 01/03/17 Discontinued Reported Medications Acetaminophen* (Tylophen*) 500 Mg Capsule, 500 MG PO TID Y for PAIN, TAB 12/31/16 Follow-up Plan Venkata Buck MD [facility] Office Address [address] [place] [address] [place] [id number] Office Primary Care Provider Care Physician No Primary Time spent on discharge: > 30 minutes Pending Labs Laboratory Tests Test 01/03/17 05:09 White Blood Count 9.010^3/ul (4.8-10.8) Red Blood Count 4.5910^6/ul (4.20-5.40) Hemoglobin 13.5g/dl (12.0-16.0) Hematocrit 41.3% (37.0-47.0) Mean Corpuscular Volume 90.0fl (82.0-101.0) Mean Corpuscular Hemoglobin 29.4pg (29.0-33.0) Mean Corpuscular Hemoglobin Concent 32.7g/dl (32.0-37.0) Red Cell Distribution Width 13.9% (11.5-14.5) Platelet Count 17583^3/UL (140-415) Mean Platelet Volume 10.8fl (7.4-10.4) Neutrophils % 62.5% (39.0-77.0) Lymphocytes % 30.0% (15.0-51.0) Monocytes % 5.9% (0.0-11.0) Eosinophils % 1.2% (0.0-7.0) Basophils % 0.3% (0.0-2.0) Nucleated Red Blood Cells % 0.0/100WBC (0.0-0.0) Neutrophils # 5.610^3/ul (1.6-7.5) Lymphocytes # 2.710^3/ul (0.8-2.9) Monocytes # 0.510^3/ul (0.3-0.9) Eosinophils # 0.110^3/ul (0.0-0.5) Basophils # 0.010^3/ul (0.0-0.1) Nucleated Red Blood Cells # 0.010^3/ul (0.0-0.0) Sodium Level 144mmol/L (135-144) Potassium Level 3.7mmol/L (3.5-5.1) Chloride Level 103mmol/L (97-110) Carbon Dioxide Level 30mmol/L (21-31) Anion Gap 15 (8-16) Blood Urea Nitrogen 6mg/dl (7-20) Creatinine 0.59mg/dl (0.44-1.00) Glucose Level 91mg/dl (70-220) Calcium Level 8.9mg/dl (8.4-10.2) Phosphorus Level 4.3mg/dl (2.5-4.9) Magnesium Level 1.8mg/dl (1.7-2.5) NELI CARBAJAL NP Jan 03, 2017 11:42
[2017-01-03 14:01] VITALS: BP 139/83; RESP 18
[2017-01-03 15:09] VITALS: BP 124/71; PULSE 68; RESP 24
== END 2017-01-03 18:35 | disposition home or self-care (01) | DRG 340 ==
LOC: FTE 16:16 → MS2 19:24
PROVIDERS: ADMIT Internal Medicine; ATTEND Internal Medicine
PROC: 0DTJ4ZZ Resection of Appendix, Percutaneous Endoscopic Approach (ICD-10-PCS; principal; 2017-01-01 05:00)
DX: K35.3 Acute appendicitis with localized peritonitis (principal)
CPT/HCPCS: 36415; 74176; 80048; 80053; 80061; 81003; 83036; 83690; 83735; 84100; 84443; 85025; 85610; 85730; 87081; 88304; 96374; 96375; J0131; J0295; J1100; J1170; J1200; J1885; J2250; J2270; J2405; J2543; J2765; J2795; J3010; J7030

== ENCOUNTER 2017-01-04 11:46 | Emergency (ER) | payer MEDICAID ==
[~2017-01-04] VITALS: Ht 160 cm; Wt 66.0 kg
[~2017-01-04 11:46] MED LIST: CEPH500C PO; DOCU-144 PO; HYDR-906 PO
[2017-01-04 11:50] VITALS: Ht 160 cm; Wt 66.0 kg
[2017-01-04] MEDS ORDERED: SOD CHLORIDE 0.9% 500 ML IV STA (12:39)
[2017-01-04] MEDS ORDERED: ONDANSETRON 4 MG INJ IV STA (12:39)
[2017-01-04] MEDS ORDERED: morphine 4 MG/ML VIAL IV STA (12:39)
[2017-01-04] MEDS ORDERED: LORAZEPAM 2 MG INJ IV ONE (13:00)
[2017-01-04 13:07] LABS: BASOPHILS % 0.3 % (0.0-2.0); EOSINOPHILS # 0.1 10^3/ul (0.0-0.5); EOSINOPHILS % 0.5 % (0.0-7.0); HEMATOCRIT 40.2 % (37.0-47.0); LYMPHOCYTES # 1.7 10^3/ul (0.8-2.9); LYMPHOCYTES % 18.9 % (15.0-51.0); MEAN CORPUSCULAR HEMOGLOBIN 30.4 pg (29.0-33.0); MEAN CORPUSCULAR HGB CONC 34.8 g/dl (32.0-37.0); MEAN CORPUSCULAR VOLUME 87.2 fl (82.0-101.0); MEAN PLATELET VOLUME 9.7 fl (7.4-10.4); MONOCYTE # 0.5 10^3/ul (0.3-0.9); MONOCYTES % 5.8 % (0.0-11.0); NEUTROPHIL # 6.8 10^3/ul (1.6-7.5); NEUTROPHILS % 74.2 % (39.0-77.0); PLATELET COUNT 250 10^3/UL (140-415); RED BLOOD COUNT 4.61 10^6/ul (4.20-5.40); RED CELL DISTRIBUTION WIDTH 13.3 % (11.5-14.5); WHITE BLOOD COUNT 9.1 10^3/ul (4.8-10.8)
--- NOTE | 2017-01-04 13:15 | ERD ---
ER Documentation Chief Complaint Chief Complaint appendectomy 3 days ago, upper abdominal pain x 2 days, [place] not helping HPI This is a 41-year-old female no significant past medical history who is 3 days status post arthroscopic appendectomy by Dr. Buck. The patient describes persistent abdominal pain that is diffuse, 10 out of 10 with associated nausea no vomiting. She is having difficulty having bowel movements but she is passing gas. She denies any migratory pain or back pain, no fevers or chills. The [place] at home is not helping. A reo asset manager was used. Family member available as well. ROS All systems reviewed and are negative except as per history of present illness. Medications Home Meds Active Scripts Cephalexin* (Cephalexin*) 500 Mg Capsule, 500 MG PO Q6, #28 CAP Prov:NELI CARBAJAL NP 01/03/17 Hydrocodone/Acetaminophen ([place] 5-325 Tablet) 1 Each Tablet, 1 EACH PO Q4H for PAIN, #40 TAB Prov:NELI CARBAJAL NP 01/03/17 Docusate Sodium* (Colace*) 100 Mg Capsule, 100 MG PO BID for 10 Days, #20 CAP Prov:NELI CARBAJAL NP 01/03/17 Discontinued Reported Medications Acetaminophen* (Tylophen*) 500 Mg Capsule, 500 MG PO TID Y for PAIN, TAB 12/31/16 Allergies Allergies: Coded Allergies: piperacillin (Verified Allergy, Mild, ITCHING, 01/04/17) tazobactam (Verified Allergy, Mild, ITCHING, 01/04/17) PMhx/Soc History of Surgery: Yes () Anesthesia Reaction: No Hx Neurological Disorder: No Hx Respiratory Disorders: No Hx Cardiac Disorders: No Hx Psychiatric Problems: No Hx Miscellaneous Medical Probl: No Hx Alcohol Use: No Hx Substance Use: No Hx Tobacco Use: No FmHx Family History: No diabetes Physical Exam Vitals Vital Signs Date Time Temp Pulse Resp B/P Pulse Ox O2 Delivery O2 Flow Rate FiO2 01/04/17 11:50 98.4 84 18 121/65 96 Physical Exam General: Tearful, crying, and pain Head: Normocephalic, atraumatic. Eyes: Pupils equally reactive, EOM intact ENT: Moist mucous membranes Neck: Supple, no lymphadenopathy Respiratory: Lungs clear bilaterally, no distress Cardiovascular: RRR, no murmurs, rubs, or gallops Abdominal: Soft, generalized abdominal tenderness that is inconsistent, nonfocal : Deferred MSK: No edema, no unilateral swelling, 5/5 strength Neurologic: Alert and oriented, moving all extremities, normal speech, no focal weakness, no cerebellar signs Skin: No rash Psych: Normal mood Result Diagram: 01/04/17 1300 01/04/17 1300 Results 24 hrs Laboratory Tests Test 01/04/17 13:00 White Blood Count 9.110^3/ul Red Blood Count 4.6110^6/ul Hemoglobin 14.0g/dl Hematocrit 40.2% Mean Corpuscular Volume 87.2fl Mean Corpuscular Hemoglobin 30.4pg Mean Corpuscular Hemoglobin Concent 34.8g/dl Red Cell Distribution Width 13.3% Platelet Count 18000^3/UL Mean Platelet Volume 9.7fl Neutrophils % 74.2% Lymphocytes % 18.9% Monocytes % 5.8% Eosinophils % 0.5% Basophils % 0.3% Nucleated Red Blood Cells % 0.0/100WBC Neutrophils # 6.810^3/ul Lymphocytes # 1.710^3/ul Monocytes # 0.510^3/ul Eosinophils # 0.110^3/ul Basophils # 0.010^3/ul Nucleated Red Blood Cells # 0.010^3/ul Sodium Level 139mmol/L Potassium Level 3.8mmol/L Chloride Level 101mmol/L Carbon Dioxide Level 29mmol/L Anion Gap 13 Blood Urea Nitrogen 13mg/dl Creatinine 0.55mg/dl Glucose Level 115mg/dl Calcium Level 9.7mg/dl Total Bilirubin 0.3mg/dl Direct Bilirubin 0.00mg/dl Indirect Bilirubin 0.3mg/dl Aspartate Amino Transf (AST/SGOT) 25IU/L Alanine Aminotransferase (ALT/SGPT) 44IU/L Alkaline Phosphatase 100IU/L Total Protein 7.9g/dl Albumin 4.0g/dl Globulin 3.90g/dl Albumin/Globulin Ratio 1.02 Lipase 24U/L Serum HCG, Qualitative NEGATIVE Current Medications Medications (Trade) Dose Ordered Sig/Yuriy Route PRN Reason Start Time Stop Time Status Last Admin Dose Admin Sodium Chloride (NS) 500 ml @ 500 mls/hr Q1H STAT IV 01/04/17 12:39 01/04/17 13:38 DC 01/04/17 13:20 Morphine Sulfate (morphine) 4 mg ONCE STAT IV 01/04/17 12:39 01/04/17 12:41 DC 01/04/17 13:20 Ondansetron HCl (Zofran Inj) 4 mg ONCE STAT IV 01/04/17 12:39 01/04/17 12:41 DC 01/04/17 13:20 Lorazepam (Ativan) 1 mg ONCE ONCE IV 01/04/17 13:00 01/04/17 13:01 DC 01/04/17 13:55 IV Flush 10 ml 10 ml STK-MED ONCE .ROUTE 01/04/17 14:54 01/04/17 14:55 DC Sodium Chloride (NS) 100 ml @ ud STK-MED ONCE .ROUTE 01/04/17 14:54 01/04/17 14:55 DC Iohexol (Omnipaque 300mg/ ml) 150 ml STK-MED ONCE .ROUTE 01/04/17 14:54 01/04/17 14:55 DC Procedures/MDM EKG, MONITORS, & DIAGNOSTIC IMAGING: CT abdomen and pelvis with IV contrast: IMPRESSION: 1. Comparison is made to the previous study from 12/31/2016. 2. There has been interval appendectomy with postoperative changes in the right lower quadrant. There is no evidence of abscess. Postoperative pneumoperitoneum is present. 3. Extensive stool seen in the colon. 4. Very mild patchy bibasilar atelectasis. 5. Multiple fat-containing lesions are again seen in the left kidney, most commonly angiomyolipomas. RPTAT:AAJJ LAB INTERPRETATION: No leukocytosis MEDICAL DECISION MAKING: The patient presents 3 days status post arthroscopic appendectomy with abdominal pain. Broad differential exists including ileus, bowel obstruction, normal postoperative pain. Consider perforation, abscess as well. Patient is extremely tearful and anxious. She will benefit from laboratory testing, pain control, IV fluids and CT imaging of the abdomen and pelvis. I will notify her surgeon. ER COURSE: The patient was given IV fluids pain control medication and Ativan. She has been resting comfortably and is asking for oral intake. Her laboratory testing is reassuring, CT imaging is expected after laparoscopic surgery. At this point I feel the patient can be safely discharged home. This is most likely normal postoperative abdominal pain. I attempted to reach out to the patient's surgeon. It appears that his call center thinks that Dr. Barr is senior executive compensation analyst by Dr. Barr states that he has not on-call for Dr. Buck. I attempted to contact Dr. Buck via personal cell phone without success. At this time I do not feel the patient requires hospitalization. Outpatient follow -up with Dr. Buck would be appropriate. I kept the patient and/or family informed of laboratory and diagnostic imaging results throughout the emergency room course. DISPOSITION PLAN: We discussed follow up with the patient's primary care doctor within 24 to 48 hours as needed. We also discussed return to the emergency room for worsening symptoms or worsening condition. Outpatient referral: Dr. Buck Discharge Medications: She has [place] at home Departure Diagnosis: Primary Impression: Postoperative generalized abdominal pain Condition: Stable ALTAF GONZALEZ MD Jan 04, 2017 13:15
[2017-01-04 13:25] LABS: ALBUMIN/GLOBULIN RATIO 1.02; BILIRUBIN,INDIRECT 0.3 mg/dl (0-1.1); BILIRUBIN,TOTAL 0.3 mg/dl (0.2-1.3); CALCIUM 9.7 mg/dl (8.4-10.2); CREATININE 0.55 mg/dl (0.44-1.00); POTASSIUM 3.8 mmol/L (3.5-5.1); TOTAL PROTEIN 7.9 g/dl (6.1-8.1)
[2017-01-04] MEDS ORDERED: SOD CHLORIDE 0.9% 100 ML ONE (14:54)
[2017-01-04] MEDS ORDERED: IOHEXOL 300MG/ML 150 ML BTL ONE (14:54)
--- NOTE | 2017-01-04 15:22 | RADRPT ---
PROCEDURE: CT Abdomen and pelvis with contrast. CLINICAL INDICATION: 3 days s/p lap appy, with pain TECHNIQUE: CT scan of the abdomen and pelvis with contrast was performed on a multidetector high-r esolution CT scan. The patient was scanned following the uncomplicated intravenous administration 1 00 cc of Isovue 370. Coronal and sagittal reformatted images were obtained from the axial source im ages. Images were reviewed on a high-resolution PACS workstation. The total exam CTDI equals 9.54 mG y and the total exam DLP equals 562.65 mGy-cm. One or more of the following dose reduction techniques were used: Automated exposure control. Adjustment of the mA and/or kV according to patient's size. Use of iterative reconstruction technique. COMPARISON: 12/31/2016 FINDINGS: Images through the lung bases reveal mild bibasilar atelectasis. The liver is normal in size and contour without evidence of intrahepatic biliary dilatation. The spleen, pancreas, and adrenal glands are unremarkable. Sludge is seen within the gallbladder. The kidneys are bilaterally symmetrical without evidence of hydronephrosis. Fat-containing lesions a re again seen in the left kidney, most commonly angiomyolipomas. The abdominal aorta is intact with out evidence of aneurysm. No significant retroperitoneal adenopathy is identified. The stomach is grossly unremarkable. There has been interval appendectomy. Postoperative changes are seen in the right lower quadrant. There is no evidence of abscess. Postoperative pneumoperitoneum i s present. Extensive stool is seen in the colon. Evaluation of the osseous structures reveals no ac angel change. IMPRESSION: 1. Comparison is made to the previous study from 12/31/2016. 2. There has been interval appendectomy with postoperative changes in the right lower quadrant. The re is no evidence of abscess. Postoperative pneumoperitoneum is present. 3. Extensive stool seen in the colon. 4. Very mild patchy bibasilar atelectasis. 5. Multiple fat-containing lesions are again seen in the left kidney, most commonly angiomyolipomas . RPTAT:AAJJ Physician Naye Date Time Electronically viewed and signed by Peyman Mijares Physician on 01/04/2017 15:22 /
[2017-01-04 16:24] VITALS: BP 128/68; PULSE 77; RESP 18; TEMP 98.3
== END 2017-01-04 16:35 | disposition home or self-care (01) ==
LOC: E/R 11:46
DX: G89.18 Other acute postprocedural pain (principal)
CPT/HCPCS: 36415; 74177; 80053; 83690; 84703; 85025; 96374; 96375; J2060; J2270; J2405; J7040; Q9967; Z7502; Z7610

== ENCOUNTER 2017-01-08 13:22 | Emergency (ER) | payer MEDICAID ==
[~2017-01-08] VITALS: Ht 165.1 cm; Wt 63.6 kg
[2017-01-08 13:24] VITALS: Ht 165.1 cm; Wt 63.6 kg
[2017-01-08] MEDS ORDERED: morphine 4 MG/ML VIAL IV STA (15:31)
[2017-01-08] MEDS ORDERED: ONDANSETRON 4 MG INJ IV STA (15:31)
--- NOTE | 2017-01-08 15:41 | ERD ---
ER Documentation Chief Complaint Chief Complaint RUQ SURGICAL SITE PAIN S/P APPENDECTOMY HPI 41-year-old female presents 8 days status post appendectomy by Dr. Buck. Patient was seen [address] Hogan. Patient's chief complaint today is 10/ 10 right upper quadrant abdominal pain. [place] without relief. No fever, chills , or pain in other areas. Patient no longer has had difficulty passing bowels. Last bowel movement was 30 minutes ago. Patient describes a BM as diarrhea. Watery and brown. No other specific characteristics given. No other medications used to alleviate symptoms. No other aggravating or alleviating factors. Tolerates p.o. No longer vomiting but is still nauseous. Patient has no other complaints and describes no other associated manifestations. Nursing notes have been reviewed and are consistent with history given. ROS All systems reviewed and are negative except as per history of present illness. Medications Home Meds Active Scripts Oxycodone HCl/Acetaminophen (Percocet 5-325 mg Tablet) 1 Each Tablet, 1 EACH PO Q6 for 3 Days, TAB Prov:DESIRAE PATEL PA-C 01/08/17 Cephalexin* (Cephalexin*) 500 Mg Capsule, 500 MG PO Q6, #28 CAP Prov:NELI CARBAJAL NP 01/03/17 Hydrocodone/Acetaminophen ([place] 5-325 Tablet) 1 Each Tablet, 1 EACH PO Q4H for PAIN, #40 TAB Prov:NELI CARBAJAL NP 01/03/17 Docusate Sodium* (Colace*) 100 Mg Capsule, 100 MG PO BID for 10 Days, #20 CAP Prov:NELI CARBAJAL NP 01/03/17 Discontinued Reported Medications Acetaminophen* (Tylophen*) 500 Mg Capsule, 500 MG PO TID Y for PAIN, TAB 12/31/16 Allergies Allergies: Coded Allergies: piperacillin (Verified Allergy, Mild, ITCHING, 01/04/17) tazobactam (Verified Allergy, Mild, ITCHING, 01/04/17) PMhx/Soc History of Surgery: Yes (,APPENDECTOMY) Anesthesia Reaction: No Hx Neurological Disorder: No Hx Respiratory Disorders: No Hx Cardiac Disorders: No Hx Psychiatric Problems: No Hx Miscellaneous Medical Probl: No Hx Alcohol Use: No Hx Substance Use: No Hx Tobacco Use: No Physical Exam Vitals Vital Signs Date Time Temp Pulse Resp B/P Pulse Ox O2 Delivery O2 Flow Rate FiO2 01/08/17 13:24 98.6 78 16 127/93 99 Physical Exam Const: 41 yo female in moderate distress. Head: Atraumatic Eyes: Normal Conjunctiva ENT: Normal External Ears, Nose and Mouth. Neck: Full range of motion..~ No meningismus. Resp: Clear to auscultation bilaterally Cardio: Regular rate and rhythm, no murmurs Abd: Soft, nondistended. Tender. Rebound tenderness. Normal bowel sounds in all 4 quadrants. Auscultation otherwise unremarkable. Surgical site wounds appear appropriately healing without signs of infection. Back: No midline or flank tenderness. No CVA tenderness Ext: No cyanosis, or edema Neur: Awake and alert Psych: Normal Mood and Affect Result Diagram: 01/08/17 1545 01/08/17 1545 Results 24 hrs Laboratory Tests Test 01/08/17 15:45 01/08/17 16:29 White Blood Count 8.710^3/ul Red Blood Count 4.9610^6/ul Hemoglobin 14.5g/dl Hematocrit 44.2% Mean Corpuscular Volume 89.1fl Mean Corpuscular Hemoglobin 29.2pg Mean Corpuscular Hemoglobin Concent 32.8g/dl Red Cell Distribution Width 13.6% Platelet Count 09112^3/UL Mean Platelet Volume 9.2fl Neutrophils % 52.3% Lymphocytes % 37.6% Monocytes % 6.9% Eosinophils % 1.9% Basophils % 0.5% Nucleated Red Blood Cells % 0.0/100WBC Neutrophils # 4.610^3/ul Lymphocytes # 3.310^3/ul Monocytes # 0.610^3/ul Eosinophils # 0.210^3/ul Basophils # 0.010^3/ul Nucleated Red Blood Cells # 0.010^3/ul Prothrombin Time 12.1Sec Prothrombin Time Ratio 0.9 INR International Normalized Ratio 0.90 Activated Partial Thromboplast Time 29.4Sec Sodium Level 142mmol/L Potassium Level 4.2mmol/L Chloride Level 98mmol/L Carbon Dioxide Level 34mmol/L Anion Gap 14 Blood Urea Nitrogen 13mg/dl Creatinine 0.61mg/dl Glucose Level 81mg/dl Calcium Level 9.4mg/dl Total Bilirubin 0.1mg/dl Direct Bilirubin 0.00mg/dl Indirect Bilirubin 0.1mg/dl Aspartate Amino Transf (AST/SGOT) 70IU/L Alanine Aminotransferase (ALT/SGPT) 77IU/L Alkaline Phosphatase 95IU/L Total Protein 8.0g/dl Albumin 4.5g/dl Globulin 3.50g/dl Albumin/Globulin Ratio 1.28 Lipase 35U/L Urine Color STRAW Urine Clarity CLEAR Urine pH 8.0 Urine Specific [place] 1.006 Urine Ketones NEGATIVEmg/dL Urine Nitrite NEGATIVEmg/dL Urine Bilirubin NEGATIVEmg/dL Urine Urobilinogen NEGATIVEmg/dL Urine Leukocyte Esterase TRACELeu/ul Urine Microscopic RBC 0/HPF Urine Microscopic WBC 1/HPF Urine Hemoglobin NEGATIVEmg/dL Urine Glucose NEGATIVEmg/dL Urine Total Protein NEGATIVEmg/dl Current Medications Medications (Trade) Dose Ordered Sig/Yuriy Route PRN Reason Start Time Stop Time Status Last Admin Dose Admin Morphine Sulfate (morphine) 4 mg ONCE STAT IV 01/08/17 15:31 01/08/17 15:33 DC 01/08/17 15:45 Ondansetron HCl (Zofran Inj) 4 mg ONCE STAT IV 01/08/17 15:31 01/08/17 15:33 DC 01/08/17 15:45 Procedures/MDM 41-year-old female presenting a day status post laparoscopic appendectomy by Dr. Buck. Patient was in the ER 4 days ago and seen by Dr. Hogan. Pain relieved with [address] revealed no acute abnormalities. Ultrasound was done today and revealed cholelithiasis. Urine was negative. Trace leukocyte esterase. Carbon dioxide 34. AST 70. ALT 77. I have little suspicion for urinary tract infection, intra-abdominal abscess, mechanical obstruction, serious bacterial infection or other acute abdomen. Most likely diagnosis is gallstones. I presented the case and reviewed the case with my attending Dr. De La Torre who agrees with the assessment and plan. I have instructed the patient to call his surgeon tomorrow morning as well as return precautions. I have spoke with the patient regarding their condition and future management. They have verbally responded that they understand their status and treatment plan. The patients vitals are stable, and their current condition is appropriate for discharge. The patient will be given discharge instructions with return precautions. Discharge medications: Percocet Departure Diagnosis: Primary Impression: Abdominal pain Abdominal location: right upper quadrant Qualified Code: R10.11 - Right upper quadrant abdominal pain Condition: Stable Additional Instructions: Call surgeon tomorrow morning to update on status. Return the the emergency department immediately if symptoms worsen or change. If you have any questions regarding medications, ask your pharmacist or us before you leave. If any adverse reactions occur while taking your medications, discontinue the treatment and return to the emergency department immediately. Take your medications as directed, and complete the entire course of treatment. DESIRAE PATEL PA-C Jan 08, 2017 15:40
[2017-01-08 15:59] LABS: BASOPHILS % 0.5 % (0.0-2.0); EOSINOPHILS # 0.2 10^3/ul (0.0-0.5); EOSINOPHILS % 1.9 % (0.0-7.0); HEMATOCRIT 44.2 % (37.0-47.0); HEMOGLOBIN 14.5 g/dl (12.0-16.0); LYMPHOCYTES # 3.3 10^3/ul (0.8-2.9); LYMPHOCYTES % 37.6 % (15.0-51.0); MEAN CORPUSCULAR HEMOGLOBIN 29.2 pg (29.0-33.0); MEAN CORPUSCULAR HGB CONC 32.8 g/dl (32.0-37.0); MEAN CORPUSCULAR VOLUME 89.1 fl (82.0-101.0); MEAN PLATELET VOLUME 9.2 fl (7.4-10.4); MONOCYTE # 0.6 10^3/ul (0.3-0.9); MONOCYTES % 6.9 % (0.0-11.0); NEUTROPHIL # 4.6 10^3/ul (1.6-7.5); NEUTROPHILS % 52.3 % (39.0-77.0); PLATELET COUNT 316 10^3/UL (140-415); RED BLOOD COUNT 4.96 10^6/ul (4.20-5.40); RED CELL DISTRIBUTION WIDTH 13.6 % (11.5-14.5); WHITE BLOOD COUNT 8.7 10^3/ul (4.8-10.8)
[2017-01-08 16:13] LABS: INR 0.9; PROTIME 12.1 Sec (12.2-14.2); PT RATIO 0.9
[2017-01-08 16:14] LABS: PARTIAL THROMBOPLASTIN TIME 29.4 Sec (25.0-35.0)
[2017-01-08 16:16] LABS: ALBUMIN 4.5 g/dl (3.3-4.9); ALBUMIN/GLOBULIN RATIO 1.28; BILIRUBIN,INDIRECT 0.1 mg/dl (0-1.1); BILIRUBIN,TOTAL 0.1 mg/dl (0.2-1.3); CALCIUM 9.4 mg/dl (8.4-10.2); CREATININE 0.61 mg/dl (0.44-1.00); POTASSIUM 4.2 mmol/L (3.5-5.1)
--- NOTE | 2017-01-08 16:20 | RADRPT ---
PROCEDURE: US Abdomen. CLINICAL INDICATION: abdominal pain TECHNIQUE: Multiple real-time images were acquired of the patient's right upper quadrant abdomen a nd retroperitoneum utilizing a high resolution transducer. COMPARISON: 01/04/2017 FINDINGS: The liver demonstrates normal echogenicity. The liver is normal in size and no focal solid lesions are seen. The liver measures 16 cm in length. The portal vein is patent with normal direction of charles w. No intrahepatic biliary dilatation is seen. Multiple calcified gallstones are identified within the gallbladder. There is no pericholecystic fl uid or gallbladder wall thickening. The common bile duct measures 4 mm in maximal dimension. The visualized portions of the pancreas are unremarkable. The tail of the pancreas is not seen. No free fluid is identified. The right kidney is normal in size, and demonstrate normal echogenicity and cortical thickness. The right kidney measures 12 cm in long dimension. There is no evidence of hydronephrosis. There are n o kidney stones. RPTAT: AA IMPRESSION: Cholelithiasis. .Dayday Garay MD, MD Date Time Electronically viewed and signed by .Dayday Garay MD, on 01/08/2017 16:20 .S/
[2017-01-08 16:58] LABS: ADD UMIC YES; UR ASCORBIC ACID NEGATIVE (NEGATIVE); UR BILIRUBIN (Dip) NEGATIVE (NEGATIVE); UR BLOOD (Dip) NEGATIVE (NEGATIVE); UR CLARITY CLEAR (CLEAR); UR COLOR STRAW (YELLOW); UR GLUCOSE (Dip) NEGATIVE (NEGATIVE); UR KETONES (Dip) NEGATIVE (NEGATIVE); UR LEUKOCYTE ESTERASE (Dip) TRACE Leu/ul (NEGATIVE); UR NITRITE (Dip) NEGATIVE (NEGATIVE); UR RBC 0 /HPF (0-5); UR SPECIFIC GRAVITY (Dip) 1.006 (1.003-1.030); UR TOTAL PROTEIN (Dip) NEGATIVE (NEGATIVE); UR UROBILINOGEN (Dip) NEGATIVE (NEGATIVE)
[2017-01-08] MEDS ORDERED: OXYC-279 PO (18:04)
== END 2017-01-08 18:50 | disposition home or self-care (01) ==
LOC: FTE 13:22
DX: R10.11 Right upper quadrant pain (principal); R11.0 Nausea
CPT/HCPCS: 36415; 76705; 80053; 81001; 83690; 85025; 85610; 85730; 96374; 96375; J2270; J2405; Z7502

== ENCOUNTER 2017-01-09 18:12 | Inpatient (IN) | payer MEDICAID ==
[~2017-01-09] VITALS: Ht 165.1 cm; Wt 67.2 kg
[~2017-01-09 18:12] MED LIST changes: +OXYC-279 PO
[2017-01-09] MEDS ORDERED: SOD CHLORIDE 0.9% 1,000 ML IV STA (19:08)
[2017-01-09] MEDS ORDERED: KETOROLAC 15 MG INJ IV STA (19:08)
[2017-01-09] MEDS ORDERED: ONDANSETRON 4 MG INJ IV STA (19:08)
[2017-01-09] MEDS ORDERED: morphine 4 MG/ML VIAL IV STA (20:04)
[2017-01-09 21:28] VITALS: BP 114/64; RESP 20
[2017-01-09 21:55] VITALS: Ht 165.1 cm; Wt 67.2 kg
[2017-01-09] MEDS ORDERED: ONDANSETRON 4 MG INJ IV PRN (22:30)
[2017-01-09] MEDS: morphine 4 MG/ML VIAL IV PRN (22:31)
[2017-01-09] MEDS: DEXTROSE 5%-0.45% NACL 1,000 ML IV SCH (22:48)
--- NOTE | 2017-01-09 23:04 | ERD ---
ER Documentation Chief Complaint Chief Complaint abdominal pain since yesterday, was seen here yesterday dx gallstones HPI 41-year-old woman here with continued post operative abdominal pain. She underwent appendectomy about a week ago and this is her third visit for pain control. She has been using her oral opioid analgesics at home without relief and usually requires IV morphine or hydromorphone to control pain while in the ER. Recent CT scan of the abdomen and pelvis was unremarkable and ultrasound revealed cholelithiasis. ROS All systems reviewed and are negative except as per history of present illness. Medications Home Meds Active Scripts Oxycodone HCl/Acetaminophen (Percocet 5-325 mg Tablet) 1 Each Tablet, 1 EACH PO Q6 for 3 Days, TAB Prov:DESIRAE PATEL PA-C 01/08/17 Cephalexin* (Cephalexin*) 500 Mg Capsule, 500 MG PO Q6, #28 CAP Prov:NELI CARBAJAL NP 01/03/17 Hydrocodone/Acetaminophen ([place] 5-325 Tablet) 1 Each Tablet, 1 EACH PO Q4H for PAIN, #40 TAB Prov:NELI CARBAJAL NP 01/03/17 Docusate Sodium* (Colace*) 100 Mg Capsule, 100 MG PO BID for 10 Days, #20 CAP Prov:NELI CARBAJAL NP 01/03/17 Discontinued Reported Medications Acetaminophen* (Tylophen*) 500 Mg Capsule, 500 MG PO TID Y for PAIN, TAB 12/31/16 Allergies Allergies: Coded Allergies: piperacillin (Verified Allergy, Mild, ITCHING, 01/09/17) tazobactam (Verified Allergy, Mild, ITCHING, 01/09/17) PMhx/Soc ?Depression, recent appendectomy History of Surgery: Yes (appedectomy (dec, 2016); (1992)) Anesthesia Reaction: No Hx Neurological Disorder: No Hx Respiratory Disorders: No Hx Cardiac Disorders: No Hx Psychiatric Problems: No Hx Miscellaneous Medical Probl: No Hx Alcohol Use: No Hx Substance Use: No Hx Tobacco Use: No Smoking Status: Former smoker FmHx Family History: No diabetes Physical Exam Vitals Vital Signs Date Time Temp Pulse Resp B/P Pulse Ox O2 Delivery O2 Flow Rate FiO2 01/09/17 18:56 57 22 128/70 99 Room Air 01/09/17 18:13 97.0 66 20 116/71 99 Physical Exam GENERAL: Well-developed, well-nourished, mild discomfort, afebrile, depressed affect HEENT: Moist mucous membranes, pink conjunctiva, no cervical spine tenderness or step-off deformities, no goiter, no jaundice or icterus, extraocular movements intact without pain. No submandibular induration, and no pharyngeal erythema NEURO: Alert and oriented 3, cranial nerves II through XII intact bilaterally, pupils equal round reactive to light, no focal deficits or facial asymmetry, sensation intact distally Strength 5/5 in upper and lower extremities bilaterally CARDIAC: Regular rate and rhythm, no murmurs rubs or gallops LUNGS: Clear bilaterally no wheezing crackles or stridor ABDOMEN: Soft nontender, no guarding, no rigidity, no rebound, no psoas sign no obturator sign. Normoactive bowel sounds SKIN: Warm and dry to touch, no abrasions, contusions, or hematomas, no lacerations, no ecchymosis, no target lesions, and without ulcers EXTREMITIES: No clubbing cyanosis or edema, calves are bilaterally symmetrical, no Homans sign, no popliteal cord sign. Distal pulses equal and bilateral PSYCH: Depressed affect Result Diagram: 01/09/17191801/09/171918 Results 24 hrs Laboratory Tests Test 01/09/17 18:52 01/09/17 19:19 Bedside Urine pH (LAB) 7.5 Bedside Urine Protein (LAB) Negative Bedside Urine Glucose (UA) Negative Bedside Urine Ketones (LAB) Negative Bedside Urine Blood Trace-intact Bedside Urine Nitrite (LAB) Negative Bedside Urine Leukocyte Esterase (L Trace White Blood Count 6.610^3/ul Red Blood Count 4.6510^6/ul Hemoglobin 14.2g/dl Hematocrit 40.9% Mean Corpuscular Volume 88.0fl Mean Corpuscular Hemoglobin 30.5pg Mean Corpuscular Hemoglobin Concent 34.7g/dl Red Cell Distribution Width 13.2% Platelet Count 99198^3/UL Mean Platelet Volume 9.1fl Neutrophils % 53.3% Lymphocytes % 38.0% Monocytes % 5.2% Eosinophils % 2.1% Basophils % 0.8% Nucleated Red Blood Cells % 0.0/100WBC Neutrophils # 3.510^3/ul Lymphocytes # 2.510^3/ul Monocytes # 0.310^3/ul Eosinophils # 0.110^3/ul Basophils # 0.110^3/ul Nucleated Red Blood Cells # 0.010^3/ul Prothrombin Time 12.2Sec Prothrombin Time Ratio 1.0 INR International Normalized Ratio 0.91 Urine Color YELLOW Urine Clarity SLIGHTLY CLOUDY Urine pH 7.0 Urine Specific [place] 1.021 Urine Ketones NEGATIVEmg/dL Urine Nitrite NEGATIVEmg/dL Urine Bilirubin NEGATIVEmg/dL Urine Urobilinogen NEGATIVEmg/dL Urine Leukocyte Esterase TRACELeu/ul Urine Microscopic RBC 4/HPF Urine Microscopic WBC 6/HPF Urine Squamous Epithelial Cells FEW/HPF Urine Hemoglobin NEGATIVEmg/dL Urine Glucose NEGATIVEmg/dL Urine Total Protein NEGATIVEmg/dl Sodium Level 142mmol/L Potassium Level 4.0mmol/L Chloride Level 101mmol/L Carbon Dioxide Level 30mmol/L Anion Gap 15 Blood Urea Nitrogen 12mg/dl Creatinine 0.59mg/dl Glucose Level 83mg/dl Calcium Level 9.1mg/dl Total Bilirubin 0.1mg/dl Direct Bilirubin 0.00mg/dl Indirect Bilirubin 0.1mg/dl Aspartate Amino Transf (AST/SGOT) 92IU/L Alanine Aminotransferase (ALT/SGPT) 116IU/L Alkaline Phosphatase 91IU/L Total Protein 7.3g/dl Albumin 4.3g/dl Globulin 3.00g/dl Albumin/Globulin Ratio 1.43 Lipase 48U/L Current Medications Medications (Trade) Dose Ordered Sig/Yuriy Route PRN Reason Start Time Stop Time Status Last Admin Dose Admin Sodium Chloride (NS) 1,000 ml @ 1,000 mls/hr Q1H STAT IV 01/09/17 19:08 01/09/17 20:07 DC 01/09/17 19:22 Ondansetron HCl (Zofran Inj) 4 mg ONCE STAT IV 01/09/17 19:08 01/09/17 19:09 DC 01/09/17 19:22 Ketorolac Tromethamine (Toradol) 15 mg ONCE STAT IV 01/09/17 19:08 01/09/17 19:09 DC 01/09/17 19:22 Procedures/[facility] IV line was established patient was placed on media monitor rhythm strip revealed a sinus rhythm at about 80 bpm with upright P and T waves. Patient was afebrile I administered 1 L normal saline intravenously, Toradol 15 mg IV for pain control, and Zofran 4 mg IV for nausea although there were no episodes of vomiting. For continued pain she received morphine 4 mg IV 1. I reviewed recent imaging studies including CT scan of the abdomen and pelvis which was unremarkable and only revealed a recent appendectomy. Please refer to radiologist dictation for full report. Her recent ultrasound revealed cholelithiasis although I do not suspect this is today. Patient looks depressed and this may be contributing to her overall symptomatology and 3 visits over the last 1 week. CBC and electrolytes were normal, liver function tests were normal. Coagulation profile was normal, urine analysis was negative for infection. Patient will be admitted to [facility] for continued pain control, as she failed outpatient management Departure Diagnosis: Primary Impression: Intractable abdominal pain Additional Impression: Postoperative pain Condition: ANDERSON Morse MD Jan 09, 2017 23:04
[2017-01-10] MEDS: KETOROLAC 30 MG INJ IV PRN ×3 (00:07→20:21)
[2017-01-10] MEDS: morphine 4 MG/ML VIAL IV PRN ×2 (02:21→07:03)
[2017-01-10 02:37] VITALS: BP 116/69; RESP 20
--- NOTE | 2017-01-10 06:50 | HP ---
Date/Time of Note Date/Time of Note DATE: 01/10/17 TIME: 06:45 Assessment/Plan VTE Prophylaxis VTE Prophylaxis Intervention: SCD's Lines/Catheters IV [facility] (from [facility]): Peripheral IV Urinary Cath still in place: No Assessment/Plan Assessment/Plan 1. Abdominal pain, post-op from her recent appendectomy vs cholelithiasis -will keep n.p.o. with IV fluid -Provide pain medications as needed -Will notify Dr. Buck, the surgeon about patient's admission -will order HIDA scan, and given elevated LFTs, MRCP as well to evaluate for choledocholithiasis 2. Abnormal LFTs -Given cholelithiasis, this could be from choledocholithiasis -GI consult -MRCP HPI/ROS Admit Date/Time Admit Date/Time Jan 09, 2017 at 19:43 Hx of Present Illness This is a 41-year-old female who underwent laparoscopic appendectomy about 10 days ago who presented to the ER complaining of abdominal pain. Since surgery, she has been experiencing abdominal pain. She did come to our after her surgery ER a couple of times after her surgery. On initial visit CT abdomen/ pelvis showed postop change seen and extensive stool. The second visit, which was yesterday, abdominal ultrasound showed cholelithiasis. Abdominal pain is diffuse but now she also experiencing pain and right upper quadrant area. PMH/Family/Social Past Surgical History Past Surgical Hx: other Social History Smoking Status: Former smoker Exam/Review of Systems Vital Signs Vitals Vital Signs Date Time Temp Pulse Resp B/P Pulse Ox O2 Delivery O2 Flow Rate FiO2 01/10/17 02:37 97.5 57 20 116/69 97 01/09/17 20:03 Room Air Intake and Output 01/09/17 01/09/17 01/10/17 15:00 23:00 07:00 Intake Total 620 ml Balance 620 ml Exam Constitutional: alert, oriented, well developed Head: atraumatic, normocephalic Respiratory: clear to auscultation, normal air movement Cardiovascular: nl pulses, regular rate and rhythm Gastrointestinal: soft, surgical scars, tender Extremities: normal pulses Labs Result Diagram: 01/10/17 0534 01/09/17 1919 Medications Medications Current Medications Dextrose/Sodium Chloride (D5-1/2ns) 1,000 ml @ 100 mls/hr Q10H IV Last administered on 01/09/17 22:48; Admin Dose 100 MLS/HR; Start 01/09/17 at 22: 30 Morphine Sulfate (morphine) 3 mg Q4H PRN IV PAIN Last administered on 02:21; Admin Dose 3 MG; Start 01/09/17 at 22:30 Ondansetron HCl (Zofran Inj) 4 mg Q6H PRN IV NAUSEA AND/OR VOMITING; Start at 22:30 Ketorolac Tromethamine (Toradol) 30 mg Q6H PRN IV PAIN Last administered on 00:07; Admin Dose 30 MG; Start 01/09/17 at 22:30; Stop 01/12/17 at 22: 29 Influenza Virus Vaccine (Fluzone) 0.5 ml ONCE ONCE IM* ; Start 01/10/17 at 21: 00; Stop 01/10/17 at 21:01 JULIUS STEEL MD Jan 10, 2017 06:50
[2017-01-10 07:46] VITALS: BP 133/80; RESP 18
[2017-01-10] MEDS: DEXTROSE 5%-0.45% NACL 1,000 ML IV SCH ×2 (09:19→18:30)
[2017-01-10] MEDS: HYDROmorphONE 0.5 MG/0.5 ML SYG IV PRN ×5 (09:54→22:46)
[2017-01-10] MEDS: CIPROFLOXACIN 400MG/D5W 200 ML IVPB SCH ×2 (11:24→21:49)
[2017-01-10] MEDS: metroNIDAZOLE 500 MG/NS (PMX) 100 ML IVPB SCH ×2 (15:23→23:51)
[2017-01-10] MEDS ORDERED: LORAZEPAM 2 MG INJ IV PRN (16:00)
[2017-01-10 16:07] VITALS: BP 142/86; RESP 18
--- NOTE | 2017-01-10 16:57 | RADRPT ---
PROCEDURE: HIDA scan CLINICAL INDICATION: 41 -year-old patient with abdominal pain. TECHNIQUE: Following the intravenous injection of 8.1 mCi of Tc-99m Mebrofenin, multiple anterior dynamic images of the abdomen along with numerous planar spot images of the abdomen were obtained up to 60 minutes post injection. COMPARISON: No prior HIDA scans. FINDINGS: The liver is promptly visualized, demonstrates homogeneous distribution of radionuclide. There is a visualization of the common bile duct, gallbladder and gastrointestinal activity within n ormal time. IMPRESSION: No evidence to suggest the presence of common bile or cystic ducts obstruction. RPTAT: HH .Mely Howe MD, MD Date Time Electronically viewed and signed by .Mely Howe MD, on 01/10/2017 16:56 .L/
[2017-01-10 20:38] VITALS: BP 162/89; RESP 20
[2017-01-10] MEDS ORDERED: INFLUENZA VIRUS VACCINE 0.5 ML SYG IM* ONE (21:00)
[2017-01-10] MEDS ORDERED: NA PHOSPHATE/BIPHOS 133 ML ENEMA PR ONE (21:00)
[2017-01-10] MEDS ORDERED: BARIUM SULF 2% 450 ML BTL (BERRY SMOOTHIE) PO ONE (22:00)
[2017-01-10 23:55] VITALS: BP 125/71; RESP 20
[2017-01-11] MEDS: HYDROmorphONE 0.5 MG/0.5 ML SYG IV PRN ×3 (03:22→19:07)
[2017-01-11] MEDS: DEXTROSE 5%-0.45% NACL 1,000 ML IV SCH ×3 (03:24→19:08)
[2017-01-11] MEDS: KETOROLAC 30 MG INJ IV PRN (04:05)
[2017-01-11] MEDS: metroNIDAZOLE 500 MG/NS (PMX) 100 ML IVPB SCH ×3 (06:25→22:05)
[2017-01-11 07:42] VITALS: BP 139/90; RESP 18
[2017-01-11] MEDS ORDERED: IOHEXOL 300MG/ML 150 ML BTL ONE (08:40)
[2017-01-11] MEDS ORDERED: SOD CHLORIDE 0.9% 100 ML ONE (08:40)
--- NOTE | 2017-01-11 09:23 | RADRPT ---
PROCEDURE: CT Abdomen and Pelvis with contrast. CLINICAL INDICATION: Abdomen and pelvis pain. TECHNIQUE: CT scan of the abdomen and pelvis with contrast was performed. The patient was scanned following the uncomplicated intravenous administration of 90 cc of Omnipaque-300. Coronal and sagit soraida reformatted images were obtained from the axial source images. Images were reviewed on a [facility] PACS workstation. Total exam DLP is 609.17 mGy-cm. CTDIvol is 10.79 mGy. One or more of the following dose reduction techniques were used: Automated exposure control, adjustment of the mA and/or kV according to patient size, use of iterative reconstruction technique. COMPARISON: CT scan of the abdomen and pelvis dated 01/04/2017. FINDINGS: The lung bases are normal. There is no pleural effusion. The liver is normal in size and attenuation. There is no focal hepatic lesion. The gallbladder and bile ducts are normal. The spleen is normal in size. There is no focal splenic lesion. There is a 1.5 cm right adrenal nodule. The adrenals are otherwise unremarkable. The pancreas is unremarkable with no mass or evidence of pancreatitis. Both kidneys demonstrate normal contrast enhancement. There are multiple small fat-containing nodu les superiorly in the left kidney consistent with angiomyolipomas, unchanged. There is no other mitch l mass or hydronephrosis. The abdominal aorta is not dilated. There is no retroperitoneal lymphadenopathy or mass. There is no pelvic lymphadenopathy or mass. The bladder and distal ureters are normal. The appendix is surgically absent. Postoperative changes are present in the vicinity with a small am ount of free air, a surgical staple line, and skin seun. There is no free fluid and there is no e vidence of abscess. The bowel and mesentery are otherwise normal. There is no free fluid or free gas. The osseous structures are unremarkable with no fracture or lytic lesion. IMPRESSION: 1. Right adrenal nodule measuring 1.5 cm. Follow-up CT scan in 6 months advised. 2. Multiple fat-containing nodule superiorly in the left kidney consistent with angiomyolipomas, be nign. 3. Postoperative changes from appendectomy. No abscess. 4. Otherwise unremarkable study. RPTAT: QQ .Jose Raul Miguel MD, Date Time Electronically viewed and signed by .Jose Raul Miguel MD, on 01/11/2017 09:22 .R/
--- NOTE | 2017-01-11 10:31 | RADRPT ---
PROCEDURE: MR Abdomen and MRCP. CLINICAL INDICATION: Right upper quadrant abdominal pain TECHNIQUE: MRI abdomen with and without contrast and MRCP was performed on a high-resolution high field scanner. 3-D coronal rotating MIP images of the biliary tree are available for review. COMPARISON: Prior CT scan dated January 04, 2017 and prior ultrasound dated January 08, 2017 FINDINGS: MRI Abdomen: Hepatic morphology is within normal limits. No gross T2 signal abnormalities. The spleen and pancreas are within normal limits. No gross peripancreatic fluid or T2 signal abnorma lities. The pancreatic duct is within normal limits. Both adrenal glands are visualized. There is a right adrenal gland nodule measuring 1.2 cm. Both kidneys are and normal anatomic position. No evidence of obstruction hydronephrosis. Air is a l eft upper pole 1.1 cm left renal fatty lesion, consistent with an angiomyolipoma. The visualized GI tract demonstrate normal caliber loops of small and large bowel. No evidence of junie wel obstruction. The aorta is unremarkable. Flow void is within normal limits. There is no same retroperitoneal lymph adenopathy. Normal homogeneous marrow signal is identified. The spinal canal appears to within normal limits. MRCP: The gallbladder is identified, containing several gallstones. The largest measures 9.2 mm. No eviden ce of intrahepatic biliary dilatation. The common bile duct is normal size and within normal limits. The pancreatic duct is within normal limits. IMPRESSION: 1. Cholelithiasis. No gross MRI evidence of inflammatory changes. Gallbladder wall appears to be wi thin normal limits. No gross pericholecystic fluid. Common bile duct is within normal limits. No int rahepatic biliary dilatation. 2. 1.2 cm right adrenal gland nodule, probably benign adenoma. 3. 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 No evidence of obstruction hydronephrosis. 4. No evidence of bowel obstruction. RPTAT: [facility] Physician Stella Date Time Electronically viewed and signed by Physician Stella on 01/11/2017 10:31 JL/
[2017-01-11] MEDS: CIPROFLOXACIN 400MG/D5W 200 ML IVPB SCH ×2 (10:42→20:41)
[2017-01-11 11:08] VITALS: BP 138/80; PULSE 60; RESP 18
[2017-01-11 14:00] VITALS: BP 138/77; RESP 18
[2017-01-11 20:43] VITALS: BP 145/79; RESP 20
[2017-01-12] MEDS: HYDROmorphONE 0.5 MG/0.5 ML SYG IV PRN ×4 (01:01→23:58)
[2017-01-12 02:21] VITALS: BP 117/77; RESP 20
[2017-01-12] MEDS: metroNIDAZOLE 500 MG/NS (PMX) 100 ML IVPB SCH ×3 (05:15→22:24)
[2017-01-12 07:38] VITALS: BP 131/79; RESP 19
[2017-01-12] MEDS: CIPROFLOXACIN 400MG/D5W 200 ML IVPB SCH ×2 (09:37→20:54)
[2017-01-12] MEDS: DEXTROSE 5%-0.45% NACL 1,000 ML IV SCH ×2 (09:39→20:23)
--- NOTE | 2017-01-12 11:23 | PN ---
Date/Time of Note Date/Time of Note LATE ENTRY DATE: 01/11/17 Assessment/Plan VTE Prophylaxis VTE Prophylaxis Intervention: SCD's Lines/Catheters IV Catheter Type (from [facility]): Peripheral IV Urinary Cath still in place: No Assessment/Plan Chief Complaint/Hosp Course Assessment and plan 1. Abdominal pain. Patient did have recent appendectomy. Surgeon was made aware. Continue IV fluids. Continue analgesics. No te with no evidence to suggest common bile duct cyst or obstruction. Still noted with transaminitis. CT scan of the abdomen showing benign left kidney fat-containing nodule consistent with angiomyolipoma. MRCP with no CBD obstruction or cyst. Will get transportation engineer to follow. 2. Transaminitis. Etiology unknown. Hepatitis panel negative. Will follow up. Disposition plan: GI consult follow. Continue with analgesics. Discussed plan. Dr. Morelos Problems: Subjective 24 Hr Interval Summary Free Text/Dictation still reports having abd pain Exam/Review of Systems Vital Signs Vitals Vital Signs Date Time Temp Pulse Resp B/P Pulse Ox O2 Delivery O2 Flow Rate FiO2 01/12/17 07:38 98.0 61 19 131/79 98 01/11/17 11:08 Room Air Intake and Output 01/11/17 01/11/17 01/12/17 15:00 23:00 07:00 Intake Total 400 ml 1200 ml 700 ml Output Total 1000 ml 850 ml Balance 400 ml 200 ml -150 ml Exam Constitutional: alert, oriented Psych: anxiety Eyes: nl conjunctiva Neck: non-tender, supple Respiratory: clear to auscultation, normal air movement Cardiovascular: regular rate and rhythm Gastrointestinal: soft, tender Skin: other (Surgical site on abdomen clean dry and intact) Results Result Diagram: 01/12/17 0443 01/12/17 0443 Results 24 hrs Laboratory Tests Test 01/11/17 14:28 01/12/17 04:43 Hepatitis B Surface Antigen NEGATIVE Hepatitis B Core Total Antibody NEGATIVE Hepatitis C Antibody NEGATIVE White Blood Count 8.0 Red Blood Count 4.70 Hemoglobin 13.8 Hematocrit 40.6 Mean Corpuscular Volume 86.4 Mean Corpuscular Hemoglobin 29.4 Mean Corpuscular Hemoglobin Concent 34.0 Red Cell Distribution Width 13.1 Platelet Count 314 Mean Platelet Volume 9.1 Neutrophils % 64.2 Lymphocytes % 27.9 Monocytes % 6.3 Eosinophils % 0.8 Basophils % 0.5 Nucleated Red Blood Cells % 0.0 Neutrophils # 5.1 Lymphocytes # 2.2 Monocytes # 0.5 Eosinophils # 0.1 Basophils # 0.0 Nucleated Red Blood Cells # 0.0 Sodium Level 144 Potassium Level 3.6 Chloride Level 105 Carbon Dioxide Level 29 Anion Gap 14 Blood Urea Nitrogen 8 Creatinine 0.69 Glucose Level 101 Calcium Level 9.3 Total Bilirubin 0.2 Direct Bilirubin 0.00 Indirect Bilirubin 0.2 Aspartate Amino Transf (AST/SGOT) 59 H Alanine Aminotransferase (ALT/SGPT) 95 H Alkaline Phosphatase 78 Total Protein 7.0 Albumin 3.6 Globulin 3.40 H Albumin/Globulin Ratio 1.05 Medications Medications Current Medications Dextrose/Sodium Chloride (D5-1/2ns) 1,000 ml @ 100 mls/hr Q10H IV Last administered on 01/12/17 09:39; Admin Dose 100 MLS/HR; Start 01/09/17 at 22: 30 Ondansetron HCl (Zofran Inj) 4 mg Q6H PRN IV NAUSEA AND/OR VOMITING Last administered on 01/11/17 04:11; Admin Dose 4 MG; Start 01/09/17 at 22:30 Ketorolac Tromethamine 30 mg 30 mg Q6H PRN IV PAIN Last administered on 04:05; Admin Dose 30 MG; Start 01/09/17 at 22:30; Stop 01/12/17 at 22:29 Ciprofloxacin/ Dextrose 200 ml @ 200 mls/hr Q12 IVPB Last administered on 09:37; Admin Dose 200 MLS/HR; Start 01/10/17 at 10:30 Metronidazole (Flagyl 500 Mg (Pmx)) 100 ml @ 100 mls/hr Q8 IVPB Last administered on 01/12/17 05:15; Admin Dose 100 MLS/HR; Start 01/10/17 at 14: 00 Hydromorphone HCl (Dilaudid) 1 mg Q2H PRN IV PAIN Last administered on 01:01; Admin Dose 1 MG; Start 01/10/17 at 17:00 Lorazepam (Ativan) 0.5 mg Q8H PRN IV anxiety; Start 01/10/17 at 16:00 KORY HYLTON Jan 12, 2017 11:23
--- NOTE | 2017-01-12 11:39 | PN ---
Date/Time of Note Date/Time of Note DATE: 01/12/17 TIME: 11:36 Assessment/Plan VTE Prophylaxis VTE Prophylaxis Intervention: SCD's Lines/Catheters [facility] (from [facility] Peripheral IV Urinary Cath still in place: No Assessment/Plan Chief Complaint/Hosp Course Assessment and plan 1. Abdominal pain. Patient did have recent appendectomy. Surgeon was made aware. Continue IV fluids. Continue analgesics. Noted with no evidence to suggest common bile duct cyst or obstruction. Still noted with transaminitis. CT scan of the abdomen showing benign left kidney fat-containing nodule consistent with angiomyolipoma. MRCP with no CBD obstruction or cyst. GI consult to follow. 2. Transaminitis. Etiology unknown. Hepatitis panel negative. Will follow up. Disposition plan: Continue with analgesics. GI consult to follow. Monitor LFT. Continue house monitoring. Discussed plan. Dr. Morelos Problems: Subjective 24 Hr Interval Summary Free Text/Dictation Requiring moderate amount of abdominal pain. RN at bedside. Exam/Review of Systems Vital Signs Vitals Vital Signs Date Time Temp Pulse Resp B/P Pulse Ox O2 Delivery O2 Flow Rate FiO2 01/12/17 07:38 98.0 61 19 131/79 98 01/11/17 11:08 Room Air Intake and Output 01/11/17 01/11/17 01/12/17 15:00 23:00 07:00 Intake Total 400 ml 1200 ml 700 ml Output Total 1000 ml 850 ml Balance 400 ml 200 ml -150 ml Exam Constitutional: alert, oriented Psych: anxiety Eyes: nl conjunctiva Neck: non-tender, supple Respiratory: clear to auscultation, normal air movement Cardiovascular: regular rate and rhythm Gastrointestinal: soft, tender Skin: other (Surgical site on abdomen clean dry and intact) Results Result Diagram: 01/12/17 0443 01/12/17 0443 Results 24 hrs Laboratory Tests Test 01/11/17 14:28 01/12/17 04:43 Hepatitis B Surface Antigen NEGATIVE Hepatitis B Core Total Antibody NEGATIVE Hepatitis C Antibody NEGATIVE White Blood Count 8.0 Red Blood Count 4.70 Hemoglobin 13.8 Hematocrit 40.6 Mean Corpuscular Volume 86.4 Mean Corpuscular Hemoglobin 29.4 Mean Corpuscular Hemoglobin Concent 34.0 Red Cell Distribution Width 13.1 Platelet Count 314 Mean Platelet Volume 9.1 Neutrophils % 64.2 Lymphocytes % 27.9 Monocytes % 6.3 Eosinophils % 0.8 Basophils % 0.5 Nucleated Red Blood Cells % 0.0 Neutrophils # 5.1 Lymphocytes # 2.2 Monocytes # 0.5 Eosinophils # 0.1 Basophils # 0.0 Nucleated Red Blood Cells # 0.0 Sodium Level 144 Potassium Level 3.6 Chloride Level 105 Carbon Dioxide Level 29 Anion Gap 14 Blood Urea Nitrogen 8 Creatinine 0.69 Glucose Level 101 Calcium Level 9.3 Total Bilirubin 0.2 Direct Bilirubin 0.00 Indirect Bilirubin 0.2 Aspartate Amino Transf (AST/SGOT) 59 H Alanine Aminotransferase (ALT/SGPT) 95 H Alkaline Phosphatase 78 Total Protein 7.0 Albumin 3.6 Globulin 3.40 H Albumin/Globulin Ratio 1.05 Medications Medications Current Medications Dextrose/Sodium Chloride (D5-1/2ns) 1,000 ml @ 100 mls/hr Q10H IV Last administered on 01/12/17 09:39; Admin Dose 100 MLS/HR; Start 01/09/17 at 22: 30 Ondansetron HCl (Zofran Inj) 4 mg Q6H PRN IV NAUSEA AND/OR VOMITING Last administered on 01/11/17 04:11; Admin Dose 4 MG; Start 01/09/17 at 22:30 Ketorolac Tromethamine 30 mg 30 mg Q6H PRN IV PAIN Last administered on 04:05; Admin Dose 30 MG; Start 01/09/17 at 22:30; Stop 01/12/17 at 22:29 Ciprofloxacin/ Dextrose 200 ml @ 200 mls/hr Q12 IVPB Last administered on 09:37; Admin Dose 200 MLS/HR; Start 01/10/17 at 10:30 Metronidazole (Flagyl 500 Mg (Pmx)) 100 ml @ 100 mls/hr Q8 IVPB Last administered on 01/12/17 05:15; Admin Dose 100 MLS/HR; Start 01/10/17 at 14: 00 Hydromorphone HCl (Dilaudid) 1 mg Q2H PRN IV PAIN Last administered on 01:01; Admin Dose 1 MG; Start 01/10/17 at 17:00 Lorazepam (Ativan) 0.5 mg Q8H PRN IV anxiety; Start 01/10/17 at 16:00 KORY HYLTON Jan 12, 2017 11:39
[2017-01-12] MEDS ORDERED: LACTULOSE 30ML CUP PO PRN (12:00)
[2017-01-12] MEDS ORDERED: NA PHOSPHATE/BIPHOS 133 ML ENEMA PR PRN (12:00)
[2017-01-12] MEDS ORDERED: SENNA TAB PO PRN (12:00)
[2017-01-12] MEDS ORDERED: BISACODYL 10 MG SUPP PR PRN (12:00)
[2017-01-12] MEDS: POLYETHYLENE GLYCOL 17 GM PACKET PO SCH (12:03)
--- NOTE | 2017-01-12 13:37 | CONS ---
Date/Time of Note Date/Time of Note DATE: 01/12/17 TIME: 13:11 Assessment/Plan Assessment/Plan Chief Complaint/Hosp Course Summary Assessment and Plan: Assessment: Minimally elevated LFTs Possibly related to history of alcohol use/drug use Rule out viral etiology Right lower quadrant pain- poss r/t surgery epigastric pain r/o gastritis r/t H.pylori vs PUD Plan: Keep n.p.o. EGD tomorrow- Patient considered too high risk for colonoscopy as appendectomy ws 10 days ago Endoscopy - risks/benefits/alternatives/indications of procedure and sedation/ anesthesia discussed with patient who states understanding and gives informed consent to proceed. PARQ held and questions were answered. Hepatitis panel Levsin as needed Will need follow-up CAT scan in the next few days Patient seen in collaboration with Chief Complaint/Reason for Visit: Right lower quadrant and epigastric abdominal pain History of Present Illness: This is a pleasant 41-year-old female with history of appendectomy 10 days ago, returns to the hospital for worsening of abdominal pain. Initial workup without evidence for underlying etiology of abdominal pain. CAT scan revealed Postoperative changes from appendectomy. No abscess.right adrenal nodule measuring 1.5 cm, multiple fat-containing nodule superiorly in the left kidney consistent with angiomyolipomas, benign, otherwise unremarkable study. MRCP shows cholelithiasis, otherwise negative. HIDA scan also negative. Labs show min LFT elevation. Patient complains of right lower quadrant pain and epigastric pain described as a pinching 8/10, she denies aggravating factors or relieving factors for pain. She complains of nausea at times and decreased appetite since appendectomy, complaints of constipation, however when she does have a bowel movement it is described as watery diarrhea. She denies hematemesis , hematozemia, vomiting, or pyrosis. She has never had a colonoscopy, and there is no family history of colon ca in her family. With recent appendectomy patient is considered high risk for colonoscopy and is not recommended. Check hepatitis panel for minimally elevated LFTs, and we will move forward with EGD tomorrow to rule out underlying etiology of epigastric abdominal pain. 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 HEAD: Normocephalic, atraumatic, no tenderness. EYES: Pupils equal reactive to light and accommodation, full extraocular movements, sclera clear, non-icteric, no discharge. EARS/NOSE AND THROAT: Ears normal, nose normal, oropharynx normal, oral membranes well hydrated without lesions. NECK: Supple, no masses, thyroid normal, JVP within normal limits, carotids normal without bruits. CHEST: Inspection within normal limits. CARDIOVASCULAR: Heart: Regular rate and rhythm, no murmurs, gallops or rubs. Peripheral pulses present within normal limits, no cyanosis, clubbing or edemas. No pulsatile abdominal mass RESPIRATORY: Lungs clear to auscultation and percussion, no wheezing, no rubs GASTROINTESTINAL AND LIVER: Abdomen: Soft, tender RLQ and epigastric area, non- distended, no hernias, no masses, no organomegaly, no ascites, , normoactive bowel sounds. Rectal: Deferred. GENITOURINARY: Female genitalia within normal limits. EXTREMITIES: No cyanosis, clubbing or edema. Problems: Consultation Date/Type/Reason Admit Date/Time Jan 09, 2017 at 19:43 Hx of Present Illness Gastrointestinal and liver: As noted in HPI, Negative for: dysphagia, odynophagia, pyrosis, regurgitation, nausea, vomiting, early satiety, bloating, abdominal pain, food intolerance, change in bowel habits, laxative use, hematemesis, melena, hematochezia, and rectal symptoms, incontinence, jaundice. Constitutional: no complaints Eyes: no complaints ENT: no complaints Respiratory: no complaints Cardiovascular: no complaints Genitourinary: no complaints Musculoskeletal: no complaints Skin: other (Surgical incision) Psychological: anxiety Past Medical History Medical History: no pertinent history Past Surgical History Past Surgical Hx: appendectomy, other () Family History Significant Family History: no pertinent family hx, other (Family history of colon cancer) Social History Alcohol Use: other (History of drinking 1 bottle of whiskey per day quit 3 years ago) Smoking Status: Former smoker (3 months ago-smoked 2 packs a day since age of 11) Drug Use: other (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) Exam/Review of Systems Vital Signs Vitals Vital Signs Date Time Temp Pulse Resp B/P Pulse Ox O2 Delivery O2 Flow Rate FiO2 01/12/17 07:38 98.0 61 19 131/79 98 01/11/17 11:08 Room Air Intake and Output 01/11/17 01/11/17 01/12/17 15:00 23:00 07:00 Intake Total 400 ml 1200 ml 700 ml Output Total 1000 ml 850 ml Balance 400 ml 200 ml -150 ml Results Result Diagram: 01/12/1744201/12/17442 Results 24 hrs Laboratory Tests Test 01/11/17 14:28 01/12/17 04:43 Hepatitis B Surface Antigen NEGATIVE Hepatitis B Core Total Antibody NEGATIVE Hepatitis C Antibody NEGATIVE White Blood Count 8.0 Red Blood Count 4.70 Hemoglobin 13.8 Hematocrit 40.6 Mean Corpuscular Volume 86.4 Mean Corpuscular Hemoglobin 29.4 Mean Corpuscular Hemoglobin Concent 34.0 Red Cell Distribution Width 13.1 Platelet Count 314 Mean Platelet Volume 9.1 Neutrophils % 64.2 Lymphocytes % 27.9 Monocytes % 6.3 Eosinophils % 0.8 Basophils % 0.5 Nucleated Red Blood Cells % 0.0 Neutrophils # 5.1 Lymphocytes # 2.2 Monocytes # 0.5 Eosinophils # 0.1 Basophils # 0.0 Nucleated Red Blood Cells # 0.0 Sodium Level 144 Potassium Level 3.6 Chloride Level 105 Carbon Dioxide Level 29 Anion Gap 14 Blood Urea Nitrogen 8 Creatinine 0.69 Glucose Level 101 Calcium Level 9.3 Total Bilirubin 0.2 Direct Bilirubin 0.00 Indirect Bilirubin 0.2 Aspartate Amino Transf (AST/SGOT) 59 H Alanine Aminotransferase (ALT/SGPT) 95 H Alkaline Phosphatase 78 Total Protein 7.0 Albumin 3.6 Globulin 3.40 H Albumin/Globulin Ratio 1.05 Medications Medications Current Medications Dextrose/Sodium Chloride (D5-1/2ns) 1,000 ml @ 100 mls/hr Q10H IV Last administered on 01/12/17t 09:39; Admin Dose 100 MLS/HR; Start 01/09/17 at 22: 30 Ondansetron HCl (Zofran Inj) 4 mg Q6H PRN IV NAUSEA AND/OR VOMITING Last administered on 01/11/17 04:11; Admin Dose 4 MG; Start 01/09/17 at 22:30 Ketorolac Tromethamine 30 mg 30 mg Q6H PRN IV PAIN Last administered on 04:05; Admin Dose 30 MG; Start 01/09/17 at 22:30; Stop 01/12/17 at 22:29 Ciprofloxacin/ Dextrose 200 ml @ 200 mls/hr Q12 IVPB Last administered on 09:37; Admin Dose 200 MLS/HR; Start 01/10/17 at 10:30 Metronidazole (Flagyl 500 Mg (Pmx)) 100 ml @ 100 mls/hr Q8 IVPB Last administered on 01/12/17 05:15; Admin Dose 100 MLS/HR; Start 01/10/17 at 14: 00 Hydromorphone HCl (Dilaudid) 1 mg Q2H PRN IV PAIN Last administered on 11:59; Admin Dose 1 MG; Start 01/10/17 at 17:00 Lorazepam (Ativan) 0.5 mg Q8H PRN IV anxiety; Start 01/10/17 at 16:00 Lactulose (Enulose) 20 gm Q6H PRN PO CONSTIPATION; Start 01/12/17 at 12:00 Sodium Biphosphate/ Sodium Phosphate (Fleet Enema) 133 ml DAILY PRN SC CONSTIPATION; Start 01/12/17 at 12:00 Bisacodyl (Dulcolax Supp) 10 mg DAILY PRN SC CONSTIPATION; Start 01/12/17 at 12:00 Polyethylene Glycol (Miralax) 17 gm DAILY PO Last administered on 01/12/17 12 :03; Admin Dose 17 GM; Start 01/12/17 at 12:00 Senna (Senokot) 2 tab BID PRN PO CONSTIPATION; Start 01/12/17 at 12:00 Copies To: CC: HERNAN DEL CID MD, VICTORIA Jan 12, 2017 13:22
[2017-01-12 14:00] VITALS: BP 129/71; RESP 19
[2017-01-12] MEDS ORDERED: HYOSCYAMINE 0.125 MG SUBL TAB SL PRN (14:00)
[2017-01-12 19:50] VITALS: BP 137/84; RESP 18
[2017-01-13] VITALS (10 sets, daily range): BP systolic 104–137; BP diastolic 58–84; PULSE 49–60; RESP 17–22
[2017-01-13] MEDS: HYDROmorphONE 0.5 MG/0.5 ML SYG IV PRN ×3 (02:01→08:59)
[2017-01-13] MEDS: DEXTROSE 5%-0.45% NACL 1,000 ML IV SCH ×2 (02:49→15:28)
[2017-01-13] MEDS: metroNIDAZOLE 500 MG/NS (PMX) 100 ML IVPB SCH (05:58)
[2017-01-13] MEDS: CIPROFLOXACIN 400MG/D5W 200 ML IVPB SCH (08:57)
[2017-01-13] MEDS: POLYETHYLENE GLYCOL 17 GM PACKET PO SCH (09:00)
--- NOTE | 2017-01-13 10:11 | PN ---
Date/Time of Note Date/Time of Note DATE: 01/13/17 TIME: 10:05 Assessment/Plan VTE Prophylaxis VTE Prophylaxis Intervention: SCD's Lines/Catheters IV C[facility] Type ([facility] Peripheral IV Urinary Cath still in place: No Assessment/Plan Chief Complaint/Hosp Course 1. Abdominal pain in a patient with recent appendicitis, S/P appendectomy on 12/2016. 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 The patient being followed by gastroenterology. Plan for colonoscopy. 2. Transaminitis without hyperbilirubinemia. Etiology unclear. Imaging positive for cholelithiasis but negative for choledocholithiasis. Hepatitis A antibody positive. Gastroenterology following. 3. DVT prophylaxis. B/L SCDs. 4. Plan. Continue pain control. Titrate down analgesics. Discontinue antibiotics , since there is no evidence of infection. Case discussed with Dr. Kaba. Problems: Subjective 24 Hr Interval Summary Free Text/Dictation Complains of abdominal pain and nausea. Exam/Review of Systems Vital Signs Vitals Vital Signs Date Time Temp Pulse Resp B/P Pulse Ox O2 Delivery O2 Flow Rate FiO2 01/13/17 07:49 98.1 49 17 124/74 Room Air 01/12/17 19:50 97 Intake and Output 01/12/17 01/12/17 01/13/17 15:00 23:00 07:00 Intake Total 800 ml 800 ml 1100 ml Output Total 800 ml 600 ml Balance 800 ml 0 ml 500 ml Exam General: Adequately build 41 year-old male lying in bed in no apparent distress. HEENT: Normocephalic, atraumatic. Eyes: Anicteric sclerae, conjunctivae clear. ENT: Nasal septum midline, oral mucosa moist. Neck supple, no JVD noticed. Respiratory: Bilaterally clear breath sounds. No use of accessory muscles of respiration. No adventitious breath sounds. Cardiovascular: S1, S2 heard. No murmurs or gallops. Abdomen: Soft. Anju-incisional tenderness. Rowan over the laparoscopic incision sites. Genitourinary: Deferred. Extremities: No cyanosis, no clubbing, no edema. Peripheral pulses palpable. Neurologic: Cranial nerves II through XII grossly intact. The patient is awake, alert, and oriented. Skin: Normal skin turgor. No skin rashes. Results Result Diagram: 01/13/17 0435 01/13/17 0435 Results 24 hrs Laboratory Tests Test 01/13/17 04:35 White Blood Count 8.7 Red Blood Count 4.79 Hemoglobin 14.4 Hematocrit 41.7 Mean Corpuscular Volume 87.1 Mean Corpuscular Hemoglobin 30.1 Mean Corpuscular Hemoglobin Concent 34.5 Red Cell Distribution Width 13.1 Platelet Count 326 Mean Platelet Volume 9.4 Neutrophils % 56.3 Lymphocytes % 36.0 Monocytes % 6.0 Eosinophils % 0.9 Basophils % 0.5 Nucleated Red Blood Cells % 0.0 Neutrophils # 4.9 Lymphocytes # 3.1 H Monocytes # 0.5 Eosinophils # 0.1 Basophils # 0.0 Nucleated Red Blood Cells # 0.0 Sodium Level 144 Potassium Level 4.1 Chloride Level 105 Carbon Dioxide Level 27 Anion Gap 16 Blood Urea Nitrogen 10 Creatinine 0.68 Glucose Level 101 Calcium Level 9.1 Total Bilirubin 0.3 Direct Bilirubin 0.00 Indirect Bilirubin 0.3 Aspartate Amino Transf (AST/SGOT) 117 H Alanine Aminotransferase (ALT/SGPT) 129 H Alkaline Phosphatase 80 Total Protein 7.1 Albumin 4.3 Globulin 2.80 Albumin/Globulin Ratio 1.53 Medications Medications Current Medications Dextrose/Sodium Chloride (D5-1/2ns) 1,000 ml @ 100 mls/hr Q10H IV Last administered on 01/13/17 02:49; Admin Dose 100 MLS/HR; Start 01/09/17 at 22: 30 Ondansetron HCl 4 mg 4 mg Q6H PRN IV NAUSEA AND/OR VOMITING Last administered on 01/11/17 04:11; Admin Dose 4 MG; Start 01/09/17 at 22:30 Ciprofloxacin/ Dextrose 200 ml @ 200 mls/hr Q12 IVPB Last administered on 08:57; Admin Dose 200 MLS/HR; Start 01/10/17 at 10:30 Metronidazole (Flagyl 500 Mg (Pmx)) 100 ml @ 100 mls/hr Q8 IVPB Last administered on 01/13/17 05:58; Admin Dose 100 MLS/HR; Start 01/10/17 at 14: 00 Hydromorphone HCl (Dilaudid) 1 mg Q2H PRN IV PAIN Last administered on 08:59; Admin Dose 1 MG; Start 01/10/17 at 17:00 Lorazepam (Ativan) 0.5 mg Q8H PRN IV anxiety; Start 01/10/17 at 16:00 Lactulose (Enulose) 20 gm Q6H PRN PO CONSTIPATION; Start 01/12/17 at 12:00 Bisacodyl (Dulcolax Supp) 10 mg DAILY PRN DE CONSTIPATION; Start 01/12/17 at 12:00 Polyethylene Glycol (Miralax) 17 gm DAILY PO Last administered on 01/12/17t 12 :03; Admin Dose 17 GM; Start 01/12/17 at 12:00 Senna (Senokot) 2 tab BID PRN PO CONSTIPATION; Start 01/12/17 at 12:00 Hyoscyamine (Levsin (Sl)) 0.125 mg Q4H PRN SL abd pain; Start 01/12/17 at 14: 00 NELI CARBAJAL NP Jan 13, 2017 10:11
[2017-01-13] MEDS: morphine 2 MG INJ IV PRN (13:29)
[2017-01-13] MEDS ORDERED: PROPOFOL 60 ML ONE (18:05)
[2017-01-13] MEDS ORDERED: LIDOCAINE 2% (SDV) 5 ML INJ ONE (18:05)
--- NOTE | 2017-01-13 18:16 | HPN ---
Date/Time of Note Date/Time of Note DATE: 01/13/17 TIME: 18:10 Interval H&P Admission Note Pt. seen H&P reviewed: No system changes HERNAN DEL CID MD Jan 13, 2017 18:16
--- NOTE | 2017-01-13 18:23 | OPPN ---
Date/Time of Note Date/Time of Note DATE: 01/13/17 TIME: 18:21 Proc Note GI Procedure Date 01/13/17 Indication: other (Abdominal pain) Pre-procedure Diagnosis Abdominal pain Post-procedure Diagnosis Impression: Moderate distal esophagitis No esophageal varices Moderate gastritis. Rule out H. pylori infection. Biopsies obtained Otherwise normal EGD Plan: Protonix 40 mg twice daily Advance diet as tolerated . Procedure Performed: Endoscopy (With biopsies) Surgeon HERNAN DEL CID MD See signature line Cleaning Handyman none Anesthesia Type: MAC Anesthesiologist: ADITYA HOFFMAN Tourniquet Time none EBL none Transfusion required none Biopsy 1: Gastric body and antrum/rule out H. pylori infection Grafts/Implants none Tubes/Drains none Complication(s) none Disposition: PACU Procedure Description Preoperative Diagnosis: After informed consent, with the patient/relatives understanding the procedure, its indications, potential risks and complications, including but not limited to : allergic reaction, bleeding, perforation or infection, and after all pertinent questions were answered to the patients satisfaction, the patient/ relatives signed witnessed informed consent. Following this, premedication was administered slowly IV push under careful cardiovascular and respiratory monitoring with pulse oximetry, automatic blood pressure, and office equipment mechanic. Once the sedative effect was achieved the patient was place in the left lateral decubitus, the panendoscope was introduced and advanced under visual control. Careful examination of the upper gastrointestinal tract, both on insertion as well as withdrawal of the instrument disclosing the following findings: ESOPHAGUS: the mucosa of the entire esophagus was carefully examined and showed the following findings: There is moderate erythema and edema of the mucosa at the esophagogastric junction. Otherwise the mucosa appears within normal limits. There is no evidence of varices, neoplasm, or stricture. No Hiatal Hernia identified. STOMACH: Upon entrance to the stomach air was insufflated, the gastric kumar distended normally. The mucosa of the fundus, body and antrum of the stomach was carefully examined both head-on and on retroflexion, and showed the following findings: There is moderate to severe erythema edema the mucosa of the body and antrum the stomach. Biopsies were obtained to rule out H. pylori infection. Otherwise the mucosa appears within normal limits with no abnormalities. There is no evidence of ulcers or neoplasm. PYLORUS: The pylorus was carefully examined and showed the following findings: the pylorus appears patent and within normal limits, with no evidence of gastric outlet obstruction. DUODENUM: The duodenal mucosa was carefully examined in the duodenal bulb as well as the second portion of the duodenum and showed the following findings: the mucosa appears unremarkable with no evidence of duodenitis, ulcer or neoplasm. Copies To: CC: HERNAN DEL CID MD, MORDO MD Jan 13, 2017 18:23
[2017-01-13] MEDS: PANTOPRAZOLE (EC) 40 MG TAB PO SCH (19:11)
[2017-01-14 02:51] VITALS: BP 121/69; RESP 16
[2017-01-14] MEDS: morphine 2 MG INJ IV PRN (04:01)
[2017-01-14] MEDS: DEXTROSE 5%-0.45% NACL 1,000 ML IV SCH (04:01)
[2017-01-14] MEDS: PANTOPRAZOLE (EC) 40 MG TAB PO SCH ×2 (05:13→17:31)
[2017-01-14 07:45] VITALS: BP 121/69; RESP 19
[2017-01-14] MEDS: POLYETHYLENE GLYCOL 17 GM PACKET PO SCH (08:37)
[2017-01-14] MEDS ORDERED: traMADol 50 MG TAB PO PRN (09:30)
--- NOTE | 2017-01-14 09:44 | PN ---
Date/Time of Note Date/Time of Note DATE: 01/14/17 TIME: 09:37 Assessment/Plan VTE Prophylaxis VTE Prophylaxis Intervention: SCD's Lines/Catheters [facility] Peripheral IV Urinary Cath still in place: No Assessment/Plan Chief Complaint/Hosp Course Summary Assessment and Plan: Assessment: Minimally elevated LFTs Possibly related to history of alcohol use/drug use Rule out viral etiology Right lower quadrant pain- poss r/t surgery epigastric pain EGD 01/13 Impression: Moderate distal esophagitis No esophageal varices Moderate gastritis. Rule out H. pylori infection. Biopsies obtained Otherwise normal EGD Plan: S/P EGD- tolerating well Continue Protonix 40 mg twice daily Tolerating diet well Take PRN meds for constipation Hep panel negative HAV AB positive (immunity or previous infection) Patient seen in collaboration with Subjective: Course reviewed with nursing staff Patient interviewed and examined All labs, imaging and other results reviewed The patient states she feels much better, she states pain has significantly improved. Biopsies are still pending. To follow up with GI in 3-4 weeks to review biopsy PHYSICAL EXAMINATION: GENERAL: Well developed, well nourished, alert & oriented x 3, in no acute distress SKIN: No lesions, no stigmata chronic liver disease, no evidence of bleeding diathesis, surgical incisions LYMPHATIC: No palpable lymphadenopathy. HEAD: Normocephalic, atraumatic, no tenderness. EYES: Pupils equal reactive to light and accommodation, full extraocular movements, sclera clear, non-icteric, no discharge. EARS/NOSE AND THROAT: Ears normal, nose normal, oropharynx normal, oral membranes well hydrated without lesions. NECK: Supple, no masses, thyroid normal, JVP within normal limits, carotids normal without bruits. CHEST: Inspection within normal limits. CARDIOVASCULAR: Heart: Regular rate and rhythm, no murmurs, gallops or rubs. Peripheral pulses present within normal limits, no cyanosis, clubbing or edemas. No pulsatile abdominal mass RESPIRATORY: Lungs clear to auscultation and percussion, no wheezing, no rubs GASTROINTESTINAL AND LIVER: Abdomen: Soft, tender RLQ and epigastric area, non- distended, no hernias, no masses, no organomegaly, no ascites, , normoactive bowel sounds. Rectal: Deferred. GENITOURINARY: Female genitalia within normal limits. EXTREMITIES: No cyanosis, clubbing or edema. Problems: Exam/Review of Systems Vital Signs Vitals Vital Signs Date Time Temp Pulse Resp B/P Pulse Ox O2 Delivery O2 Flow Rate FiO2 01/14/17 07:45 98.0 71 19 121/69 98 01/13/17 18:50 Room Air 01/13/17 18:46 2.0 Intake and Output 01/13/17 01/13/17 01/14/17 14:59 22:59 06:59 Intake Total 300 ml 900 ml 1500 ml Output Total 600 ml 600 ml Balance 300 ml 300 ml 900 ml Results Result Diagram: 01/14/17 0435 01/14/17 0435 Results 24 hrs Laboratory Tests Test 01/14/17 04:35 White Blood Count 8.2 Red Blood Count 5.36 Hemoglobin 15.5 Hematocrit 46.1 Mean Corpuscular Volume 86.0 Mean Corpuscular Hemoglobin 28.9 L Mean Corpuscular Hemoglobin Concent 33.6 Red Cell Distribution Width 13.4 Platelet Count 339 Mean Platelet Volume 9.4 Neutrophils % 49.0 Lymphocytes % 43.7 Monocytes % 5.4 Eosinophils % 1.1 Basophils % 0.6 Nucleated Red Blood Cells % 0.0 Neutrophils # 4.0 Lymphocytes # 3.6 H Monocytes # 0.4 Eosinophils # 0.1 Basophils # 0.1 Nucleated Red Blood Cells # 0.0 Sodium Level 145 H Potassium Level 3.6 Chloride Level 105 Carbon Dioxide Level 28 Anion Gap 16 Blood Urea Nitrogen 8 Creatinine 0.69 Glucose Level 95 Calcium Level 9.5 Phosphorus Level 5.0 H Magnesium Level 2.0 Total Bilirubin 0.5 Direct Bilirubin 0.00 Indirect Bilirubin 0.5 Aspartate Amino Transf (AST/SGOT) 89 H Alanine Aminotransferase (ALT/SGPT) 132 H Alkaline Phosphatase 91 Total Protein 7.5 Albumin 4.8 Globulin 2.70 Albumin/Globulin Ratio 1.77 Medications Medications Current Medications Ondansetron HCl (Zofran Inj) 4 mg Q6H PRN IV NAUSEA AND/OR VOMITING Last administered on 01/11/17 04:11; Admin Dose 4 MG; Start 01/09/17 at 22:30 Lorazepam (Ativan) 0.5 mg Q8H PRN IV anxiety; Start 01/10/17 at 16:00 Lactulose (Enulose) 20 gm Q6H PRN PO CONSTIPATION Last administered on 04:01; Admin Dose 20 GM; Start 01/12/17 at 12:00 Bisacodyl (Dulcolax Supp) 10 mg DAILY PRN [place] CONSTIPATION; Start 01/12/17 at 12:00 Polyethylene Glycol (Miralax) 17 gm DAILY PO Last administered on 01/14/17 08 :37; Admin Dose 17 GM; Start 01/12/17 at 12:00 Senna (Senokot) 2 tab BID PRN PO CONSTIPATION; Start 01/12/17 at 12:00 Hyoscyamine (Levsin (Sl)) 0.125 mg Q4H PRN SL abd pain Last administered on 05:13; Admin Dose 0.125 MG; Start 01/12/17 at 14:00 Pantoprazole (Protonix Tab) 40 mg BID@06,18 PO Last administered on 01/14/17 05:13; Admin Dose 40 MG; Start 01/13/17 at 18:41 Tramadol HCl (Ultram) 50 mg Q6H PRN PO Pain; Start 01/14/17 at 09:30 CEE ALMONTE Jan 14, 2017 09:44
--- NOTE | 2017-01-14 13:34 | PDOCDIS ---
Discharge Instructions DIAGNOSIS Discharge Diagnosis Abdominal pain. Moderate gastritis. Moderate distal esophagitis. CONDITION Patient Condition: Stable HOME CARE INSTRUCTIONS: Diet Instructions: Regular ACTIVITY: Activity Restrictions: Avoid heavy lifting (For 6 weeks.) FOLLOW UP/APPOINTMENTS Follow-up Plan Addison Cummins MD Specialty: Internal Medicine Office Address: [address] [place], [place] [id number] Office OTHER ORDERS: Other Orders: 1. Take medications as per prescription. 2. Follow-up with Dr. Buck this week for incision check. 3. Regular diet. 4. Activities as tolerated. 5. Follow-up with your primary care physician in 1 week. If you do not have a primary care physician, please call Dr. Addison Cummins's office. NELI CARBAJAL NP Jan 14, 2017 13:34
--- NOTE | 2017-01-14 13:34 | PDOCDIS ---
Discharge Instructions DIAGNOSIS Discharge Diagnosis Abdominal pain. Moderate gastritis. Moderate distal esophagitis. CONDITION Patient Condition: Stable HOME CARE INSTRUCTIONS: Diet Instructions: Regular ACTIVITY: Activity Restrictions: Avoid heavy lifting (For 6 weeks.) FOLLOW UP/APPOINTMENTS Follow-up Plan Addison Cummins MD Specialty: Internal Medicine Office Address: [address] [place], [place] [id number] Office OTHER ORDERS: Other Orders: 1. Take medications as per prescription. 2. Follow-up with Dr. Buck this week for incision check. 3. Regular diet. 4. Activities as tolerated. 5. Follow-up with your primary care physician in 1 week. If you do not have a primary care physician, please call Dr. Addison Cummins's office. NELI CARBAJAL NP Jan 14, 2017 13:34
[2017-01-14] MEDS ORDERED: TRAM50TA2 PO (13:35)
[2017-01-14] MEDS ORDERED: PANT40TA4 PO (13:35)
--- NOTE | 2017-01-14 16:21 | DS ---
Date/Time of Note Date/Time of Note DATE: 01/14/17 TIME: 16:21 Discharge Summary Admission/Discharge Info Admit Date/Time Jan 09, 2017 at 19:43 Discharge Date/Time Discharge Diagnosis 1. Abdominal pain (resolved). 2. Moderate gastritis. 3. Moderate distal esophagitis. 4. Recent appendicitis. Status post laparoscopic appendectomy on 01/02/2017. Patient Condition: Stable Consults 1. Alex Montez MD, Gastroenterology. Procedures Pre-procedure Diagnosis Abdominal pain Post-procedure Diagnosis Impression: Moderate distal esophagitis No esophageal varices Moderate gastritis. Rule out H. pylori infection. Biopsies obtained Otherwise normal EGD Plan: Protonix 40 mg twice daily Advance diet as tolerated . Procedure Performed: Endoscopy (With biopsies). Hx of Present Illness This is a 41-year-old female who underwent laparoscopic appendectomy about 10 days ago who presented to the ER complaining of abdominal pain. Since surgery, she has been experiencing abdominal pain. She did come to ER a couple of times after her surgery. On initial visit CT abdomen/pelvis showed postop changes and extensive stool. Abdominal pain was diffuse and was located in the right upper quadrant area. Hospital Course The patient was admitted to inpatient medical surgical floor. A gastroenterology consult was obtained. The patient underwent a CT scan of the abdomen and pelvis that was negative for any acute changes other than the postoperative findings. The patient also underwent an MRCP that showed cholelithiasis with no evidence of inflammatory changes with the gallbladder wall appearing within normal limits. The MRCP also revealed the common bile duct within normal limits with no intrahepatic biliary dilatation. Patient underwent a HIDA scan that showed no evidence to suggest the presence of common bile duct or cystic duct obstruction. Therefore, the patient's abdominal pain was confirmed not to be from underlying hepatobiliary system. The patient underwent an esophagogastroduodenoscopy on 01/13/2017 that showed moderate distal esophagitis and moderate gastritis. The patient's pathology from gastric biopsy was negative for any H. pylori. Gastroenterology recommended continuing the patient on proton pump inhibitor therapy. The patient responded well to the therapeutic regimen. The patient was started on a full liquid diet and the patient's diet was advanced to a regular consistency diet without any significant gastrointestinal symptoms. The patient had a stable hospital course. The patient was cleared by gastroenterology to be discharged home. The patient still has the seun from the appendectomy. Therefore, the patient was instructed to follow-up with Dr. Buck. The patient had an appointment scheduled on 01/14/[address] Buck. This will be rescheduled for later day during this week. Discharge Instructions 1. Take medications as per prescription. 2. Follow-up with Dr. Buck this week for incision check. 3. Regular diet. 4. Activities as tolerated. 5. Follow-up with your primary care physician in 1 week. If you do not have a primary care physician, please call Dr. Addison Cummins's office. The patient verbalized understanding of her discharge instructions. At this time I would like to thank all the consultants for seeing the patient, doing the necessary procedures, and providing clinical recommendations. Case discussed with Dr. Kaba. Home Meds Active Scripts Tramadol HCl (Tramadol HCl) 50 Mg Tablet, 50 MG PO Q6H Y for Pain, #10 TAB Prov:NELI CARBAJAL NP 01/14/17 Pantoprazole* (Pantoprazole*) 40 Mg Tablet., 40 MG PO BID@,18, #60 TAB Prov:NELI CARBAJAL NP 01/14/17 Docusate Sodium* (Colace*) 100 Mg Capsule, 100 MG PO BID for 10 Days, #20 CAP Prov:NELI CARBAJAL NP 01/03/17 Discontinued Scripts Oxycodone HCl/Acetaminophen (Percocet 5-325 mg Tablet) 1 Each Tablet, 1 EACH PO Q6 for 3 Days, TAB Prov:DESIRAE PATEL PA-C 01/08/17 Cephalexin* (Cephalexin*) 500 Mg Capsule, 500 MG PO Q6, #28 CAP Prov:NELI CARBAJAL NP 01/03/17 Hydrocodone/Acetaminophen (Aurora 5-325 Tablet) 1 Each Tablet, 1 EACH PO Q4H for PAIN, #40 TAB Prov:NELI CARBAJAL NP 01/03/17 Follow-up Plan Addison Cummins MD Specialty: Internal Medicine Office Address: [address] [place] [address] Office Primary Care Provider Care Physician No Primary Time spent on discharge: > 30 minutes Pending Labs Laboratory Tests Test 01/14/17 04:35 White Blood Count 8.210^3/ul (4.8-10.8) Red Blood Count 5.3610^6/ul (4.20-5.40) Hemoglobin 15.5g/dl (12.0-16.0) Hematocrit 46.1% (37.0-47.0) Mean Corpuscular Volume 86.0fl (82.0-101.0) Mean Corpuscular Hemoglobin 28.9pg (29.0-33.0) Mean Corpuscular Hemoglobin Concent 33.6g/dl (32.0-37.0) Red Cell Distribution Width 13.4% (11.5-14.5) Platelet Count 01144^3/UL (140-415) Mean Platelet Volume 9.4fl (7.4-10.4) Neutrophils % 49.0% (39.0-77.0) Lymphocytes % 43.7% (15.0-51.0) Monocytes % 5.4% (0.0-11.0) Eosinophils % 1.1% (0.0-7.0) Basophils % 0.6% (0.0-2.0) Nucleated Red Blood Cells % 0.0/100WBC (0.0-0.0) Neutrophils # 4.010^3/ul (1.6-7.5) Lymphocytes # 3.610^3/ul (0.8-2.9) Monocytes # 0.410^3/ul (0.3-0.9) Eosinophils # 0.110^3/ul (0.0-0.5) Basophils # 0.110^3/ul (0.0-0.1) Nucleated Red Blood Cells # 0.010^3/ul (0.0-0.0) Sodium Level 145mmol/L (135-144) Potassium Level 3.6mmol/L (3.5-5.1) Chloride Level 105mmol/L (97-110) Carbon Dioxide Level 28mmol/L (21-31) Anion Gap 16 (8-16) Blood Urea Nitrogen 8mg/dl (7-20) Creatinine 0.69mg/dl (0.44-1.00) Glucose Level 95mg/dl (70-220) Calcium Level 9.5mg/dl (8.4-10.2) Phosphorus Level 5.0mg/dl (2.5-4.9) Magnesium Level 2.0mg/dl (1.7-2.5) Total Bilirubin 0.5mg/dl (0.2-1.3) Direct Bilirubin 0.00mg/dl (0.00-0.20) Indirect Bilirubin 0.5mg/dl (0-1.1) Aspartate Amino Transf (AST/SGOT) 89IU/L (15-46) Alanine Aminotransferase (ALT/SGPT) 132IU/L (13-69) Alkaline Phosphatase 91IU/L (42-121) Total Protein 7.5g/dl (6.1-8.1) Albumin 4.8g/dl (3.3-4.9) Globulin 2.70g/dl (1.3-3.2) Albumin/Globulin Ratio 1.77 NELI CARBAJAL NP Jan 14, 2017 16:21
--- NOTE | 2017-01-16 06:34 | DS ---
DATE OF ADMISSION: 01/09/2017 DATE OF DISCHARGE: 01/14/2017 FINAL DIAGNOSES: 1. Abdominal pain. Esophagogastroduodenoscopy showing moderate distal esophagitis and moderate gastritis. 3. Status post-recent appendicitis with appendectomy on 01/02/2017. CONSULTANTS: Dr. Alex Montez, Gastroenterology. HOSPITAL COURSE: This is a 41-year-old female, who underwent a laparoscopic appendectomy on 01/02/2017 and was discharged home. The patient came back to the ER multiple times complaining of abdominal pain. The patient underwent a CT scan of the abdomen and pelvis in the emergency room that showed postoperative changes from appendectomy with no evidence of any abscess. The CT scan also showed multiple fat containing nodules superiorly in the left kidney consistent with angiomyolipoma. The CT scan also revealed a right adrenal nodule measuring 1.5 cm. A gastroenterology consult was called to further evaluate the patient's underlying symptoms. The patient underwent an esophagogastroduodenoscopy on 01/13/2017. The esophagogastroduodenoscopy showed moderate distal esophagitis and moderate gastritis. Consequently, the patient was started on Protonix twice daily. The patient was started on a diet and the patient's diet was advanced as tolerated to a regular consistency diet without any significant gastrointestinal symptoms. The reason for the patient's abdominal pain could have been most probably from her underlying gastritis and esophagitis. The patient was cleared by gastroenterology to be discharged home. The patient was also noticed to have some transaminitis without hyperbilirubinemia which improved throughout the patient's hospital course. The patient was noticed to have a positive hepatitis A antibody. However, the patient's hepatitis A IgM was negative. DISCHARGE PLAN: The patient will be discharged home today. The patient was instructed to take medications as per prescription. She was instructed to follow up with Dr. Buck this week for incision check. She was instructed to follow a regular diet. She was instructed to resume activities as tolerated. She was instructed to follow up with her primary care physician in 1 week and if she does not have a primary care physician, to please call Dr. Addison Cummins's office. The patient verbalized understanding of her discharge instructions. DISCHARGE CONDITION: Stable. DISCHARGE MEDICATIONS: 1. Protonix 40 mg orally twice daily. 2. Tramadol 50 mg orally every 6 hours as needed for pain (#10 tablets). 3. Colace 100 mg orally twice daily for 10 days. PERTINENT LAB AND PROCEDURES: 1. Esophagogastroduodenoscopy. Moderate distal esophagitis. Moderate gastritis. 2. HIDA scan. No evidence to suggest the presence of common bile duct or cystic duct obstruction. 3. MRCP. Cholelithiasis. No gross MRI evidence of inflammatory changes. The gallbladder appears to be within normal limits. Common bile duct is within normal limits. No intrahepatic biliary dilatation. A 1.2 cm right adrenal gland nodule. 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 No evidence of obstruction. No evidence of bowel obstruction. 4. Latest CBC, WBC 8.2, hemoglobin 15.5, hematocrit 46.1, and platelet count 339,000. 5. Latest BMP, sodium 145, potassium 3.6, chloride 105, carbon dioxide 28, anion gap 15, BUN 8, creatinine 0.6, and glucose 95, calcium 9.5, phosphorus 5.2, magnesium 2.2. Total bilirubin 0.5, direct bilirubin 0.00, indirect bilirubin 0.5. AST 89, ALT 132, alkaline phosphatase 91. 6. Hepatitis A total antibody positive, hepatitis A IgM antibody nonreactive. At this time, I would like to thank Dr. Montez for seeing the patient, doing the necessary procedures, and providing clinical recommendations. The case and management of this patient was fully discussed with Dr. Kaba. DISCHARGE TIME SPENT: Approximately, 35 minutes was spent on coordinating the discharge on this patient. Dictated By: Colt Gonzalez NP /jeffrey/adia /Document#: [id number] RAPHAEL
== END 2017-01-14 18:15 | disposition home or self-care (01) | DRG 392 ==
LOC: E/R 18:12 → MS1 19:43
PROVIDERS: ADMIT Internal Medicine; ATTEND Internal Medicine
PROC: 0DB68ZX Excision of Stomach, Via Natural or Artificial Opening Endoscopic, Diagnostic (ICD-10-PCS; principal; 2017-01-13 19:00)
DX: K29.70 Gastritis, unspecified, without bleeding (principal); F15.11 Other stimulant abuse, in remission; K20.9 Esophagitis, unspecified; R10.31 Right lower quadrant pain; R10.11 Right upper quadrant pain; D17.71 Benign lipomatous neoplasm of kidney; Z87.891 Personal history of nicotine dependence; Z72.89 Other problems related to lifestyle; R74.0 Nonspecific elevation of levels of transaminase and lactic acid dehydrogenase [LDH]; K80.20 Calculus of gallbladder without cholecystitis without obstruction
CPT/HCPCS: 36415; 74177; 74181; 78226; 80048; 80053; 81001; 81003; 83605; 83690; 83735; 84100; 85025; 85610; 86704; 86706; 86708; 86709; 86803; 87081; 87340; 88305; 88312; 90686; 96374; 96375; A9537; J0744; J1170; J1885; J2270; J2405; J7030; J7042; Q9967

== ENCOUNTER 2017-01-21 16:30 | Emergency (ER) | payer MEDICAID ==
[~2017-01-21] VITALS: Ht 157.5 cm; Wt 64.5 kg
[~2017-01-21 16:30] MED LIST changes: -CEPH500C PO; -HYDR-906 PO; -OXYC-279 PO; +PANT40TA4 PO; +TRAM50TA2 PO
[2017-01-21 16:56] VITALS: Ht 157.5 cm; Wt 64.5 kg
[2017-01-21] MEDS ORDERED: SOD CHLORIDE 0.9% 1,000 ML IV STA (17:57)
[2017-01-21] MEDS ORDERED: HYDROmorphONE 1 MG/ML SYG IV STA ×2 (17:57→19:34)
[2017-01-21] MEDS ORDERED: ONDANSETRON 4 MG INJ IV STA ×2 (17:57→19:34)
--- NOTE | 2017-01-21 18:25 | RADRPT ---
PROCEDURE: US Abdomen. CLINICAL INDICATION: abdominal pain TECHNIQUE: Multiple real-time images were acquired of the patient's right upper quadrant abdomen a nd retroperitoneum utilizing a high resolution transducer. COMPARISON: US ABDOMEN 01/08/2017 FINDINGS: The liver demonstrates normal echogenicity. The liver is normal in size and no focal solid lesions are seen. The liver measures 16 cm in length. The portal vein is patent with normal direction of charles w. No intrahepatic biliary dilatation is seen. Multiple calcified gallstones are identified within the gallbladder. There is no pericholecystic fl uid or gallbladder wall thickening. The common bile duct measures 4 mm in maximal dimension. The visualized portions of the pancreas are unremarkable. The tail of the pancreas is not seen. No free fluid is identified. The right kidney is normal in size, and demonstrate normal echogenicity and cortical thickness. The right kidney measures 10.8 cm in long dimension. There is no evidence of hydronephrosis. There are no kidney stones. RPTAT: AA IMPRESSION: Cholelithiasis. No evidence of gallbladder wall thickening or pericholecystic fluid. .Dayday Garay MD MD Date Time Electronically viewed and signed by .Dayday Garay MD, MD on 01/21/2017 18:25 .S/
--- NOTE | 2017-01-21 18:45 | ERD ---
ER Documentation Chief Complaint Chief Complaint right upper quad pain x 1 month HPI Is a 41-year-old female who is complaining of right upper quadrant pain for the past month. The patient finally went to the hospital yesterday and was seen at an outside emergency room and was diagnosed with gallstones. Patient describes the pain is crampy and intermittent. It is worse after food. She is nauseated but no vomiting and no diarrhea no chest pain shortness of breath no fever. The pain does radiate into the right mid back. Currently the pain is moderate ROS All systems reviewed and are negative except as per history of present illness. Medications Home Meds Active Scripts Ondansetron (Ondansetron Odt) 4 Mg Tab.rapdis, 4 MG PO Q6H Y for NAUSEA AND/OR VOMITING, #10 TAB Prov:RACHEL PACK DO 01/21/17 Hydrocodone/Acetaminophen ([place] 10-325 Tablet) 1 Each Tablet, 1 TAB PO Q6H Y for PAIN, #20 TAB Prov:RACHEL PACK DO 01/21/17 Dicyclomine Hcl* (Bentyl*) 10 Mg Capsule, 20 MG PO QID, #30 CAP Prov:RACHEL PACK DO 01/21/17 Tramadol HCl (Tramadol HCl) 50 Mg Tablet, 50 MG PO Q6H Y for Pain, #10 TAB Prov:NELI CARBAJAL NP 01/14/17 Pantoprazole* (Pantoprazole*) 40 Mg Tablet.dr, 40 MG PO BID@06,18, #60 TAB Prov:NELI CARBAJAL NP 01/14/17 Docusate Sodium* (Colace*) 100 Mg Capsule, 100 MG PO BID for 10 Days, #20 CAP Prov:NELI CARBAJAL NP 01/03/17 Discontinued Scripts Oxycodone HCl/Acetaminophen (Percocet 5-325 mg Tablet) 1 Each Tablet, 1 EACH PO Q6 for 3 Days, TAB Prov:DESIRAE PATEL PA-C 01/08/17 Cephalexin* (Cephalexin*) 500 Mg Capsule, 500 MG PO Q6, #28 CAP Prov:NELI CARBAJAL NP 01/03/17 Hydrocodone/Acetaminophen ([place] 5-325 Tablet) 1 Each Tablet, 1 EACH PO Q4H for PAIN, #40 TAB Prov:NELI CARBAJAL [employer] 01/03/17 Allergies Allergies: Coded Allergies: piperacillin (Verified Allergy, Mild, ITCHING, 01/09/17) tazobactam (Verified Allergy, Mild, ITCHING, 01/09/17) PMhx/Soc History of Surgery: Yes (appedectomy (dec, 2016); (1992)) Anesthesia Reaction: No Hx Neurological Disorder: No Hx Respiratory Disorders: No Hx Cardiac Disorders: No Hx Psychiatric Problems: No Hx Miscellaneous Medical Probl: No Hx Alcohol Use: No Hx Substance Use: Yes (alcohol, crystal , and cocaine) Hx Tobacco Use: No Smoking Status: Never smoker FmHx Family History: No coronary disease Physical Exam Vitals Vital Signs Date Time Temp Pulse Resp B/P Pulse Ox O2 Delivery O2 Flow Rate FiO2 01/21/17 16:56 98.0 65 18 105/58 70 Physical Exam Const: Const: Well-developed, well-nourished Head: Atraumatic, normocephalic Eyes: Normal Conjunctiva, PERRLA, EOMI, normal sclera, no nystagmus ENT: Normal External Ears, Nose and Mouth, moist mucus membranes. Neck: Full range of motion. No meningismus, no lymphadenopathy. Resp: Clear to auscultation bilaterally, no wheezing, rhonchi, rales Cardio: Regular rate and rhythm, no murmurs, S1 S2 present Abd: Soft, moderate right upper quadrant tenderness, non distended. Normal bowel sounds, no guarding or rebound, no pulsitile abdominal masses or bruits Skin: No petechiae or rashes, no ecchymosis , no maculopapular rash Back: No midline or flank tenderness Ext: No cyanosis, or edema, FROM x 4, normal inspection, neurovascularly intact x 4 Neur: Awake and alert, STR 5/5 x 4, sensation intact x 4, no focal findings, cerebellum intact Psych: Normal Mood and Affect Result Diagram: 01/21/17184901/21/171849 Results 24 hrs Laboratory Tests Test 01/21/17 18:50 White Blood Count 8.710^3/ul Red Blood Count 5.0910^6/ul Hemoglobin 14.8g/dl Hematocrit 45.3% Mean Corpuscular Volume 89.0fl Mean Corpuscular Hemoglobin 29.1pg Mean Corpuscular Hemoglobin Concent 32.7g/dl Red Cell Distribution Width 13.9% Platelet Count 49355^3/UL Mean Platelet Volume 10.1fl Neutrophils % 41.3% Lymphocytes % 51.1% Monocytes % 5.5% Eosinophils % 1.5% Basophils % 0.5% Nucleated Red Blood Cells % 0.0/100WBC Neutrophils # 3.610^3/ul Lymphocytes # 4.510^3/ul Monocytes # 0.510^3/ul Eosinophils # 0.110^3/ul Basophils # 0.010^3/ul Nucleated Red Blood Cells # 0.010^3/ul Sodium Level 144mmol/L Potassium Level 4.2mmol/L Chloride Level 102mmol/L Carbon Dioxide Level 30mmol/L Anion Gap 16 Blood Urea Nitrogen 17mg/dl Creatinine 0.76mg/dl Glucose Level 77mg/dl Calcium Level 9.2mg/dl Total Bilirubin 0.1mg/dl Direct Bilirubin 0.00mg/dl Indirect Bilirubin 0.1mg/dl Aspartate Amino Transf (AST/SGOT) 29IU/L Alanine Aminotransferase (ALT/SGPT) 43IU/L Alkaline Phosphatase 81IU/L Total Protein 7.8g/dl Albumin 4.6g/dl Globulin 3.20g/dl Albumin/Globulin Ratio 1.43 Lipase 96U/L Current Medications Medications (Trade) Dose Ordered Sig/Yuriy Route PRN Reason Start Time Stop Time Status Last Admin Dose Admin Sodium Chloride (NS) 1,000 ml @ 1,000 mls/hr Q1H STAT IV 01/21/17 17:57 01/21/17 18:56 DC 01/21/17 18:42 Hydromorphone HCl (Dilaudid) 1 mg ONCE STAT IV 01/21/17 17:57 01/21/17 17:59 DC 01/21/17 18:42 Ondansetron HCl (Zofran Inj) 4 mg ONCE STAT IV 01/21/17 17:57 01/21/17 17:59 DC 01/21/17 18:42 Dicyclomine HCl (Bentyl) 20 mg ONCE ONCE IM 01/21/17 20:00 01/21/17 20:01 DC 01/21/17 19:57 Hydromorphone HCl (Dilaudid) 1 mg ONCE STAT IV 01/21/17 19:34 01/21/17 19:38 DC 01/21/17 19:48 Ondansetron HCl (Zofran Inj) 4 mg ONCE STAT IV 01/21/17 19:34 01/21/17 19:38 DC 01/21/17 19:51 Diphenhydramine HCl (Benadryl) 25 mg ONCE ONCE IV 01/21/17 20:30 01/21/17 20:31 01/21/17 20:21 Diphenhydramine HCl (Benadryl) 50 mg STK-MED ONCE .ROUTE 01/21/17 20:15 01/21/17 20:16 DC Procedures/MDM PROCEDURE: US Abdomen. CLINICAL INDICATION: abdominal pain TECHNIQUE: Multiple real-time images were acquired of the patient's right upper quadrant abdomen and retroperitoneum utilizing a high resolution transducer. COMPARISON: US ABDOMEN 01/08/2017 FINDINGS: The liver demonstrates normal echogenicity. The liver is normal in size and no focal solid lesions are seen. The liver measures 16 cm in length. The portal vein is patent with normal direction of flow. No intrahepatic biliary dilatation is seen. Multiple calcified gallstones are identified within the gallbladder. There is no pericholecystic fluid or gallbladder wall thickening. The common bile duct measures 4 mm in maximal dimension. The visualized portions of the pancreas are unremarkable. The tail of the pancreas is not seen. No free fluid is identified. The right kidney is normal in size, and demonstrate normal echogenicity and cortical thickness. The right kidney measures 10.8 cm in long dimension. There is no evidence of hydronephrosis. There are no kidney stones. RPTAT: AA IMPRESSION: Cholelithiasis. No evidence of gallbladder wall thickening or pericholecystic fluid. .Dayday Garay MD, Date Time Electronically viewed and signed by .Dayday Garay MD, MD on 01/21/2017 18: 25 .S/ CC: RACHEL PACK DO LFTs are normal. Will discharge home on Bentyl and hydrocodone and Zoloft with surgery follow-up Departure Diagnosis: Primary Impression: Gallstones Condition: Stable RACHEL PACK DO Jan 21, 2017 18:45
[2017-01-21] MEDS ORDERED: HYDR-902 PO (19:38)
[2017-01-21] MEDS ORDERED: DICY10CA60 PO (19:38)
[2017-01-21] MEDS ORDERED: ONDA4TAB14 PO (19:38)
[2017-01-21] MEDS ORDERED: DICYCLOMINE 20 MG INJ IM ONE (20:00)
[2017-01-21] MEDS ORDERED: DIPHENHYDRAMINE 50 MG INJ ONE (20:15)
[2017-01-21] MEDS ORDERED: DIPHENHYDRAMINE 50 MG INJ IV ONE (20:30)
[2017-01-21 21:01] VITALS: BP 123/67; PULSE 51; RESP 16; TEMP 98
== END 2017-01-21 21:02 | disposition home or self-care (01) ==
LOC: FTE 16:30
DX: K80.20 Calculus of gallbladder without cholecystitis without obstruction (principal)
CPT/HCPCS: 36415; 76705; 80053; 83690; 85025; 96372; 96374; 96375; 96376; J0500; J1170; J1200; J2405; J7030; Z7502